=== PATIENT | male | born 1940 | race Caucasian/White ===

== ENCOUNTER 2017-08-10 14:56 | Inpatient (IN) ==
[2017-08-10] MEDS ORDERED: SODIUM CHLORIDE 0.9% 2,600 ML IV ONE (15:28)
[2017-08-10] MEDS ORDERED: LEVOFLOXACIN INJ 500 MG in PREMIX 1 EACH IV SCH (15:30)
[2017-08-10] MEDS ORDERED: LEVOFLOXACIN INJ 100 ML IV ONE (16:47)
[2017-08-10 17:03] LABS: Basophils # 0.1 10*3/uL (0.0-0.2); Basophils % 0.3 % (0.0-0.8); Eosinophils # 0.1 10*3/uL (0.0-0.87); Eosinophils % 0.3 % (0.00-10.9); Hematocrit 32.9 VOL% (42.0-52.0); Immature Granulocytes % 0.7 %; Immature Granulocytes Absolute 0.11 #; Lymphocytes # 2.3 10*3/uL (1.4-4.0); Lymphocytes % 15.4 % (21.2-54.2); Mean Corpuscular HGB Conc 36.5 GM/DL (32-36); Mean Corpuscular Hemoglobin 32 PG (27-34); Mean Platelet Volume 11.5 FL (9.6-12.0); Monocytes # 1.3 10*3/uL (0.11-0.8); Monocytes % 8.8 % (1.7-12.7); NRBC # 0.02 10*3/uL; Neutrophils # 11.2 10*3/uL (1.4-7.4); Neutrophils % 74.5 % (38.7-73.9); Platelet Count 166 T/CUMM (130-400); Red Blood Count 3.78 MC/CUMM (3.8-5.5)
[2017-08-10 17:21] LABS: Lactic Acid 2.4 MMOL/L (0.4-2.0)
[2017-08-10 17:28] LABS: Albumin 3.5 G/DL (3.4-5.0); Bilirubin,Total 0.6 MG/DL (0.2-1.0); Calcium 8.3 MG/DL (8.5-10.1); Osmolality,Calculated 263.7 MOS/KG (273-304); Potassium 4.7 MMOL/L (3.5-5.1); Total Protein 6.1 G/DL (6.4-8.3)
[2017-08-10 17:29] LABS: INR 1.1; PT Patient Result 11.3 SECS; Partial Thromboplastin Time 25.7 SECS (0-40)
[2017-08-10 17:42] LABS: Apearance,Urine Slightly Hazy (Clear); Bilirubin,Urine Negative (Negative); Blood, Urine Negative (Negative); Glucose,Urine (UA) Negative (Negative); Hyaline Casts,Urine 1 /LPF (0-3); Ketones,Urine Negative (Negative); Nitrite,Urine Negative (Negative); Protein,Urine 30 MG/DL; RBC,Urine 9 /HPF (0-4); Urine Color Yellow (Yellow); Urine Specific Gravity 1.011 (1.001-1.035); Urine Urobilinogen < 2.0 EU/DL (0.2-1.0); WBC,Urine 3 /HPF (0-6)
[2017-08-10] MEDS ORDERED: ONDANSETRON 4 MG TABLET PO PRN (18:29)
[2017-08-10] MEDS ORDERED: LEVOFLOXACIN INJ 750 MG in PREMIX 1 EACH IV SCH (18:30)
[2017-08-10] MEDS ORDERED: DEXTROSE 50% 25 GM/50 ML VIAL IV PRN ×2 (18:31)
[2017-08-10] MEDS ORDERED: GLUCAGON 1 MG VIAL IM PRN ×2 (18:31)
[2017-08-10] MEDS ORDERED: ALBUTEROL 2.5 MG/3 ML NEB RESP TX PRN (18:39)
[2017-08-10] MEDS ORDERED: ACETAMINOPHEN 325 MG TABLET PO PRN (18:40)
[2017-08-10] MEDS ORDERED: ONDANSETRON 4 MG/2 ML VIAL IV PRN (18:40)
[2017-08-10] MEDS ORDERED: guaiFENesin/DM ER 600-30 MG TABLET PO PRN (18:40)
[2017-08-10] MEDS ORDERED: ENOXAPARIN 40 MG/0.4 ML SYRINGE SUBCUT SCH (19:00)
[2017-08-10 19:08] LABS: ABG Base Excess -1.7 MMOL/L (-2.5-2.5); ABG Oxygen Saturation 95.6 % (95-100); ABG PCO2 35.4 MM HG (35-48); ABG PH 7.409 (7.35-7.45); ABG PO2 73.8 MM HG (80-95); ABG TCO2 19.9 MMOL/L (23-27)
[2017-08-10] MEDS: methylPREDNISolone SOD SUC 40 MG/1 ML VIAL IV SCH (20:41)
[2017-08-10] MEDS: DOCUSATE SODIUM 100 MG CAPSULE PO SCH (20:42)
[2017-08-10] MEDS: ASPIRIN EC 81 MG TABLET PO SCH (20:42)
[2017-08-10] MEDS ORDERED: VANCOMYCIN INJ 1,500 MG in SODIUM CHLORIDE 0.9% 500 ML IV SCH (21:00)
[2017-08-10] MEDS: INSULIN REGULAR 100 UNIT/ML SUBCUT SCH (21:06)
[2017-08-10] MEDS: ALBUTEROL/IPRATROPIUM 3 ML NEB RESP TX SCH (21:11)
[2017-08-10] MEDS: ZALEPLON 5 MG CAPSULE PO PRN ×2 (22:32→23:25)
[2017-08-10] MEDS: AZTREONAM 1,000 MG in SODIUM CHLORIDE 0.9% 50 ML IV SCH (22:33)
[2017-08-11] MEDS: ALBUTEROL/IPRATROPIUM 3 ML NEB RESP TX SCH ×4 (01:05→20:02)
[2017-08-11] MEDS: AZTREONAM 1,000 MG in SODIUM CHLORIDE 0.9% 50 ML IV SCH ×2 (04:24→16:14)
[2017-08-11] MEDS: methylPREDNISolone SOD SUC 40 MG/1 ML VIAL IV SCH ×3 (04:25→11:07)
[2017-08-11 05:18] LABS: Basophils % 0.1 % (0.0-0.8); Hematocrit 33.9 VOL% (42.0-52.0); Hemoglobin 11.9 GM/DL (14.0-18.0); Immature Granulocytes Absolute 0.13 #; Lymphocytes # 1.1 10*3/uL (1.4-4.0); Lymphocytes % 9.1 % (21.2-54.2); Mean Corpuscular HGB Conc 35.1 GM/DL (32-36); Mean Corpuscular Hemoglobin 31 PG (27-34); Mean Corpuscular Volume 88.7 FL (87-102); Mean Platelet Volume 11.3 FL (9.6-12.0); Monocytes # 0.2 10*3/uL (0.11-0.8); Monocytes % 1.9 % (1.7-12.7); Neutrophils # 10.9 10*3/uL (1.4-7.4); Neutrophils % 87.9 % (38.7-73.9); Platelet Count 159 T/CUMM (130-400); Red Blood Count 3.82 MC/CUMM (3.8-5.5); Red Cell Distribution Width 13.2 % (9.3-17.3); White Blood Count 12.4 T/CUMM (4-12)
[2017-08-11 05:53] LABS: Calcium 8.5 MG/DL (8.5-10.1); Osmolality,Calculated 276.2 MOS/KG (273-304); Potassium 4.7 MMOL/L (3.5-5.1)
[2017-08-11] MEDS ORDERED: NON-FORMULARY MEDICATION (Omeprazole [Omeprazole] 20 MG) PO SCH (09:00)
[2017-08-11] MEDS: ASPIRIN EC 81 MG TABLET PO SCH ×2 (09:27→21:11)
[2017-08-11] MEDS: DOCUSATE SODIUM 100 MG CAPSULE PO SCH ×2 (09:27→21:10)
[2017-08-11] MEDS: PANTOPRAZOLE 40 MG TABLET PO SCH (09:27)
[2017-08-11] MEDS: INSULIN NPH/REGULAR 70/30 100 UNIT/ML SUBCUT SCH ×2 (09:28→16:16)
[2017-08-11] MEDS: INSULIN REGULAR 100 UNIT/ML SUBCUT SCH ×4 (09:28→23:00)
[2017-08-11] MEDS: VANCOMYCIN INJ 1,500 MG in SODIUM CHLORIDE 0.9% 500 ML IV SCH ×2 (11:21→23:37)
[2017-08-11] MEDS: SIMVASTATIN 40 MG TABLET PO SCH (16:14)
[2017-08-11] MEDS: traZODone 50 MG TABLET PO SCH (16:14)
[2017-08-11] MEDS: LEVOFLOXACIN INJ 750 MG in PREMIX 1 EACH IV SCH (21:11)
[2017-08-12] MEDS: ALBUTEROL/IPRATROPIUM 3 ML NEB RESP TX SCH ×4 (01:04→19:48)
[2017-08-12] MEDS: AZTREONAM 1,000 MG in SODIUM CHLORIDE 0.9% 50 ML IV SCH ×4 (03:00→17:05)
[2017-08-12] MEDS: PANTOPRAZOLE 40 MG TABLET PO SCH (08:17)
[2017-08-12] MEDS: ASPIRIN EC 81 MG TABLET PO SCH ×2 (08:17→21:10)
[2017-08-12] MEDS: INSULIN REGULAR 100 UNIT/ML SUBCUT SCH ×4 (08:17→22:10)
[2017-08-12] MEDS: INSULIN NPH/REGULAR 70/30 100 UNIT/ML SUBCUT SCH ×2 (08:17→17:05)
[2017-08-12] MEDS: DOCUSATE SODIUM 100 MG CAPSULE PO SCH ×2 (08:17→21:10)
[2017-08-12 08:40] LABS: Basophils % 0.1 % (0.0-0.8); Hematocrit 33.7 VOL% (42.0-52.0); Hemoglobin 11.7 GM/DL (14.0-18.0); Immature Granulocytes % 0.8 %; Immature Granulocytes Absolute 0.13 #; Lymphocytes # 2.7 10*3/uL (1.4-4.0); Lymphocytes % 16.8 % (21.2-54.2); Mean Corpuscular HGB Conc 34.7 GM/DL (32-36); Mean Corpuscular Hemoglobin 31 PG (27-34); Mean Corpuscular Volume 90.1 FL (87-102); Mean Platelet Volume 11.4 FL (9.6-12.0); Monocytes % 6.2 % (1.7-12.7); Neutrophils # 12.1 10*3/uL (1.4-7.4); Neutrophils % 76.1 % (38.7-73.9); Platelet Count 176 T/CUMM (130-400); Red Blood Count 3.74 MC/CUMM (3.8-5.5); Red Cell Distribution Width 13.7 % (9.3-17.3); White Blood Count 15.9 T/CUMM (4-12)
[2017-08-12 09:16] LABS: Albumin 3.6 G/DL (3.4-5.0); Bilirubin,Total 0.4 MG/DL (0.2-1.0); Calcium 9.4 MG/DL (8.5-10.1); Magnesium 2.1 MG/DL (1.8-2.4); Osmolality,Calculated 275.1 MOS/KG (273-304); Phosphorous 1.9 MG/DL (2.5-4.9); Potassium 4.8 MMOL/L (3.5-5.1); Total Protein 6.9 G/DL (6.4-8.3)
[2017-08-12] MEDS: VANCOMYCIN INJ 1,500 MG in SODIUM CHLORIDE 0.9% 500 ML IV SCH ×2 (13:54→14:31)
[2017-08-12] MEDS: SIMVASTATIN 40 MG TABLET PO SCH (16:48)
[2017-08-12] MEDS: traZODone 50 MG TABLET PO SCH (16:48)
[2017-08-12] MEDS: LEVOFLOXACIN INJ 750 MG in PREMIX 1 EACH IV SCH (21:10)
[2017-08-13] MEDS: ALBUTEROL/IPRATROPIUM 3 ML NEB RESP TX SCH ×4 (00:07→20:06)
[2017-08-13] MEDS: AZTREONAM 1,000 MG in SODIUM CHLORIDE 0.9% 50 ML IV SCH ×2 (01:16→08:15)
[2017-08-13] MEDS: VANCOMYCIN INJ 1,500 MG in SODIUM CHLORIDE 0.9% 500 ML IV SCH (01:56)
[2017-08-13 05:29] LABS: Basophils % 0.2 % (0.0-0.8); Eosinophils # 0.1 10*3/uL (0.0-0.87); Eosinophils % 0.6 % (0.00-10.9); Hematocrit 33.3 VOL% (42.0-52.0); Hemoglobin 11.4 GM/DL (14.0-18.0); Immature Granulocytes % 0.5 %; Immature Granulocytes Absolute 0.05 #; Lymphocytes # 3.1 10*3/uL (1.4-4.0); Lymphocytes % 31.1 % (21.2-54.2); Mean Corpuscular HGB Conc 34.2 GM/DL (32-36); Mean Corpuscular Hemoglobin 30 PG (27-34); Mean Corpuscular Volume 88.6 FL (87-102); Mean Platelet Volume 11.4 FL (9.6-12.0); Monocytes # 0.8 10*3/uL (0.11-0.8); Monocytes % 7.8 % (1.7-12.7); Neutrophils % 59.8 % (38.7-73.9); Platelet Count 175 T/CUMM (130-400); Red Blood Count 3.76 MC/CUMM (3.8-5.5); Red Cell Distribution Width 13.7 % (9.3-17.3)
[2017-08-13 06:15] LABS: Albumin 3.4 G/DL (3.4-5.0); Bilirubin,Total 0.8 MG/DL (0.2-1.0); Calcium 8.7 MG/DL (8.5-10.1); Magnesium 2.1 MG/DL (1.8-2.4); Osmolality,Calculated 272.8 MOS/KG (273-304); Potassium 3.8 MMOL/L (3.5-5.1); Total Protein 6.3 G/DL (6.4-8.3)
[2017-08-13] MEDS: INSULIN REGULAR 100 UNIT/ML SUBCUT SCH ×4 (08:12→21:09)
[2017-08-13] MEDS: ASPIRIN EC 81 MG TABLET PO SCH ×2 (08:15→20:47)
[2017-08-13] MEDS: DOCUSATE SODIUM 100 MG CAPSULE PO SCH ×2 (08:16→20:47)
[2017-08-13] MEDS: INSULIN NPH/REGULAR 70/30 100 UNIT/ML SUBCUT SCH ×2 (08:16→16:48)
[2017-08-13] MEDS: PANTOPRAZOLE 40 MG TABLET PO SCH (08:16)
[2017-08-13] MEDS: LEVOFLOXACIN 750 MG TABLET PO SCH (11:50)
[2017-08-13] MEDS: SIMVASTATIN 40 MG TABLET PO SCH (16:48)
[2017-08-13] MEDS: traZODone 50 MG TABLET PO SCH (16:48)
[2017-08-14] MEDS: ALBUTEROL/IPRATROPIUM 3 ML NEB RESP TX SCH ×2 (01:42→07:10)
[2017-08-14] MEDS: INSULIN NPH/REGULAR 70/30 100 UNIT/ML SUBCUT SCH (09:26)
[2017-08-14] MEDS: ASPIRIN EC 81 MG TABLET PO SCH (09:27)
[2017-08-14] MEDS: DOCUSATE SODIUM 100 MG CAPSULE PO SCH (09:27)
[2017-08-14] MEDS: INSULIN REGULAR 100 UNIT/ML SUBCUT SCH ×2 (09:27→13:20)
[2017-08-14] MEDS: PANTOPRAZOLE 40 MG TABLET PO SCH (09:27)
[2017-08-14 10:09] VITALS: BP 163/97
[2017-08-14] MEDS: LEVOFLOXACIN 750 MG TABLET PO SCH (11:35)
== END 2017-08-14 12:45 | DRG 871 ==
LOC: N.ED 14:56 → N.EDINP 18:13 → SUATTDRO 18:13 → N.ICU 19:03 → N.5E 08-11 12:06
PROVIDERS: ADMIT Hospitalist; ATTEND Internal Medicine

== ENCOUNTER 2017-08-26 19:29 | Inpatient (IN) ==
[2017-08-26] MEDS ORDERED: LEVOFLOXACIN INJ 750 MG in PREMIX 1 EACH IV STA (20:01)
[2017-08-26] MEDS ORDERED: METOPROLOL TARTRATE 5 MG/5 ML VIAL IV STA (20:01)
[2017-08-26] MEDS ORDERED: ONDANSETRON 4 MG/2 ML VIAL IV STA (20:01)
[2017-08-26] MEDS ORDERED: METOPROLOL TARTRATE 5 MG/5 ML VIAL IV ONE (20:05)
[2017-08-26] MEDS ORDERED: LEVOFLOXACIN INJ 150 ML IV ONE (20:05)
[2017-08-26] MEDS ORDERED: ONDANSETRON 4 MG/2 ML VIAL ONE (20:05)
[2017-08-26 20:15] LABS: Basophils # 0.1 10*3/uL (0.0-0.2); Basophils % 1.1 % (0.0-0.8); Eosinophils # 0.2 10*3/uL (0.0-0.87); Eosinophils % 2.7 % (0.00-10.9); Hematocrit 34.8 VOL% (42.0-52.0); Hemoglobin 12.3 GM/DL (14.0-18.0); Immature Granulocytes % 0.5 %; Immature Granulocytes Absolute 0.04 #; Lymphocytes # 2.2 10*3/uL (1.4-4.0); Lymphocytes % 28.7 % (21.2-54.2); Mean Corpuscular HGB Conc 35.3 GM/DL (32-36); Mean Corpuscular Hemoglobin 31 PG (27-34); Mean Corpuscular Volume 87.2 FL (87-102); Mean Platelet Volume 11.5 FL (9.6-12.0); Monocytes % 12.6 % (1.7-12.7); Neutrophils # 4.1 10*3/uL (1.4-7.4); Neutrophils % 54.4 % (38.7-73.9); Platelet Count 223 T/CUMM (130-400); Red Blood Count 3.99 MC/CUMM (3.8-5.5); Red Cell Distribution Width 12.5 % (9.3-17.3); White Blood Count 7.5 T/CUMM (4-12)
[2017-08-26 20:25] LABS: PT Patient Result 10.7 SECS
[2017-08-26] MEDS ORDERED: SODIUM CHLORIDE 0.9% 500 ML IV STA (20:32)
[2017-08-26 20:44] LABS: Apearance,Urine Slightly Hazy (Clear); Bacteria,Urine Occasional /HPF (Few); Bilirubin,Urine Negative (Negative); Blood, Urine Negative (Negative); Glucose,Urine (UA) Negative (Negative); Hyaline Casts,Urine 1 /LPF (0-3); Ketones,Urine Negative (Negative); Mucus,Urine Occasional /LPF (Occasional); Nitrite,Urine Negative (Negative); Protein,Urine 30 MG/DL; RBC,Urine 1 /HPF (0-4); Squamous Epithelial Cell,Urine Occasional /HPF (0-10); Urine Color Yellow (Yellow); Urine Specific Gravity 1.012 (1.001-1.035); Urine Urobilinogen < 2.0 EU/DL (0.2-1.0); WBC,Urine 1 /HPF (0-6)
[2017-08-26 20:46] LABS: Band Neutrophils 2 % (0-10); Eosinophils 2 % (0-10); Lymphocytes 34 % (20-55); Segmented Neutrophils 55 % (50-85)
[2017-08-26 20:47] LABS: Total Cells Counted 100
[2017-08-26 20:48] LABS: Platelet Estimate Normal
[2017-08-26 20:56] LABS: Alanine Aminotransferase 29 U/L (16-61); Albumin 3.8 G/DL (3.4-5.0); Alkaline Phosphatase 63 U/L (45-117); Aspartate Amino Transferase 31 U/L (0-37); Blood Urea Nitrogen 9 MG/DL (7-18); Calcium 8.5 MG/DL (8.5-10.1); Glucose 76 MG/DL (74-106); Osmolality,Calculated 252.2 MOS/KG (273-304); Potassium 4.6 MMOL/L (3.5-5.1); Sodium 127 MMOL/L (136-145); Total Protein 7.2 G/DL (6.4-8.3); Troponin I Only < 0.015 NG/ML (0.00-0.045)
[2017-08-26] MEDS ORDERED: DEXTROSE 50% 25 GM/50 ML VIAL IV PRN (22:28)
[2017-08-26] MEDS ORDERED: GLUCAGON 1 MG VIAL IM PRN (22:28)
[2017-08-26] MEDS ORDERED: ONDANSETRON 4 MG/2 ML VIAL IV PRN ×2 (23:55)
[2017-08-27] MEDS ORDERED: LINEZOLID INJ 600 MG in PREMIX 1 EACH IV SCH
[2017-08-27] MEDS: SODIUM CHLORIDE 0.9% 1,000 ML IV SCH ×5 (00:14→18:23)
[2017-08-27] MEDS: AZTREONAM 1,000 MG in SYRINGE 1 EACH IV SCH ×3 (00:29→15:38)
[2017-08-27] MEDS: SODIUM CHLORIDE 1 GM TABLET PO SCH ×4 (00:45→21:10)
[2017-08-27] MEDS: PROMETHAZINE 25 MG/1 ML VIAL IM PRN ×3 (02:10→16:00)
[2017-08-27 02:52] LABS: Basophils # 0.1 10*3/uL (0.0-0.2); Basophils % 0.8 % (0.0-0.8); Eosinophils # 0.1 10*3/uL (0.0-0.87); Eosinophils % 1.6 % (0.00-10.9); Hematocrit 31.8 VOL% (42.0-52.0); Hemoglobin 11.2 GM/DL (14.0-18.0); Immature Granulocytes % 0.5 %; Immature Granulocytes Absolute 0.04 #; Lymphocytes # 2.3 10*3/uL (1.4-4.0); Lymphocytes % 30.1 % (21.2-54.2); Mean Corpuscular HGB Conc 35.2 GM/DL (32-36); Mean Corpuscular Hemoglobin 31 PG (27-34); Mean Corpuscular Volume 86.6 FL (87-102); Mean Platelet Volume 11.8 FL (9.6-12.0); Monocytes # 1.2 10*3/uL (0.11-0.8); Monocytes % 15.7 % (1.7-12.7); NRBC # 0.05 10*3/uL; Neutrophils # 3.9 10*3/uL (1.4-7.4); Neutrophils % 51.3 % (38.7-73.9); Platelet Count 194 T/CUMM (130-400); Red Blood Count 3.67 MC/CUMM (3.8-5.5); Red Cell Distribution Width 12.6 % (9.3-17.3); White Blood Count 7.5 T/CUMM (4-12)
[2017-08-27 03:04] LABS: Calcium 7.7 MG/DL (8.5-10.1); Magnesium 1.8 MG/DL (1.8-2.4); Osmolality,Calculated 255.2 MOS/KG (273-304); Potassium 4.6 MMOL/L (3.5-5.1)
[2017-08-27 04:29] LABS: Band Neutrophils 1 % (0-10); Eosinophils 1 % (0-10); Lymphocytes 29 % (20-55); Nucleated Red Blood Cells 2 (0-5); Segmented Neutrophils 53 % (50-85); Total Cells Counted 100
[2017-08-27 04:30] LABS: Anisocytosis Slight; Macrocytosis Slight; Platelet Estimate Normal; Polychromasia 2+
[2017-08-27] MEDS ORDERED: ACETAMINOPHEN 500 MG TABLET PO PRN (05:17)
[2017-08-27] MEDS ORDERED: SODIUM CHLORIDE 0.9% 1,000 ML IV ONE (07:34)
[2017-08-27 08:02] LABS: Allen Test Positive; Pt O2 Delivery Device Simple Mask
[2017-08-27 08:03] LABS: ABG HCO3 21.9 MMOL/L (20-26); ABG Oxygen Saturation 98.7 % (95-100); ABG PCO2 30.8 MM HG (35-48); ABG PH 7.429 (7.35-7.45); ABG TCO2 18.3 MMOL/L (23-27)
[2017-08-27 09:26] LABS: Pt O2 Delivery Device Venturi Mask
[2017-08-27 09:27] LABS: ABG Base Excess -4.1 MMOL/L (-2.5-2.5); ABG Oxygen Saturation 96.8 % (95-100); ABG PCO2 31.8 MM HG (35-48); ABG PH 7.402 (7.35-7.45); ABG PO2 83.5 MM HG (80-95); ABG TCO2 17.9 MMOL/L (23-27)
[2017-08-27] MEDS: HYDROCORTISONE 100 MG VIAL IV SCH ×2 (09:56→21:10)
[2017-08-27] MEDS: ASPIRIN EC 81 MG TABLET PO SCH ×2 (09:59→21:10)
[2017-08-27] MEDS: INSULIN NPH/REGULAR 70/30 100 UNIT/ML SUBCUT SCH ×2 (09:59→21:11)
[2017-08-27] MEDS: DOCUSATE SODIUM 100 MG CAPSULE PO SCH ×2 (09:59→21:10)
[2017-08-27] MEDS: IRBESARTAN 150 MG TABLET PO SCH (10:17)
[2017-08-27] MEDS: CARVEDILOL 6.25 MG TABLET PO SCH ×2 (10:17→21:11)
[2017-08-27] MEDS ORDERED: FUROSEMIDE 40 MG/4 ML VIAL IV ONE (13:06)
[2017-08-27] MEDS: SIMVASTATIN 40 MG TABLET PO SCH (16:01)
[2017-08-27] MEDS: INSULIN REGULAR 100 UNIT/ML SUBCUT SCH (21:11)
[2017-08-28] MEDS: AZTREONAM 1,000 MG in SYRINGE 1 EACH IV SCH ×3 (00:10→15:55)
[2017-08-28] MEDS: SODIUM CHLORIDE 0.9% 1,000 ML IV SCH ×5 (00:12→23:20)
[2017-08-28] MEDS: LEVOFLOXACIN INJ 500 MG in PREMIX 1 EACH IV SCH (06:45)
[2017-08-28] MEDS: INSULIN REGULAR 100 UNIT/ML SUBCUT SCH ×4 (07:58→20:57)
[2017-08-28 09:31] LABS: Calcium 7.8 MG/DL (8.5-10.1); Magnesium 2.3 MG/DL (1.8-2.4); Osmolality,Calculated 276.5 MOS/KG (273-304); Potassium 4.5 MMOL/L (3.5-5.1)
[2017-08-28] MEDS: HYDROCORTISONE 100 MG VIAL IV SCH ×2 (09:44→20:55)
[2017-08-28] MEDS: INSULIN NPH/REGULAR 70/30 100 UNIT/ML SUBCUT SCH ×2 (09:50→21:03)
[2017-08-28] MEDS: IRBESARTAN 150 MG TABLET PO SCH (09:51)
[2017-08-28] MEDS: SODIUM CHLORIDE 1 GM TABLET PO SCH ×3 (09:51→20:55)
[2017-08-28] MEDS: CARVEDILOL 6.25 MG TABLET PO SCH ×2 (09:52→20:56)
[2017-08-28] MEDS: ASPIRIN EC 81 MG TABLET PO SCH ×2 (09:52→20:55)
[2017-08-28] MEDS: DOCUSATE SODIUM 100 MG CAPSULE PO SCH ×2 (09:52→20:55)
[2017-08-28] MEDS ORDERED: VANCOMYCIN INJ 1,000 MG in SODIUM CHLORIDE 0.9% 250 ML IV SCH (11:00)
[2017-08-28] MEDS: VANCOMYCIN INJ 1,250 MG in SODIUM CHLORIDE 0.9% 250 ML IV SCH ×2 (11:54→23:20)
[2017-08-28] MEDS: SIMVASTATIN 40 MG TABLET PO SCH (16:01)
[2017-08-29] MEDS: AZTREONAM 1,000 MG in SYRINGE 1 EACH IV SCH ×2 (01:14→11:41)
[2017-08-29] MEDS: LEVOFLOXACIN INJ 500 MG in PREMIX 1 EACH IV SCH (06:02)
[2017-08-29] MEDS: SODIUM CHLORIDE 0.9% 1,000 ML IV SCH ×3 (06:11→23:12)
[2017-08-29] MEDS: INSULIN NPH/REGULAR 70/30 100 UNIT/ML SUBCUT SCH ×2 (07:22→17:22)
[2017-08-29] MEDS: INSULIN REGULAR 100 UNIT/ML SUBCUT SCH ×4 (07:22→22:27)
[2017-08-29] MEDS: DOCUSATE SODIUM 100 MG CAPSULE PO SCH ×2 (10:00→20:29)
[2017-08-29] MEDS: CARVEDILOL 6.25 MG TABLET PO SCH ×3 (10:26→20:34)
[2017-08-29] MEDS: SODIUM CHLORIDE 1 GM TABLET PO SCH ×3 (10:26→20:29)
[2017-08-29] MEDS: IRBESARTAN 150 MG TABLET PO SCH (10:27)
[2017-08-29] MEDS: ASPIRIN EC 81 MG TABLET PO SCH ×2 (10:28→20:29)
[2017-08-29] MEDS: HYDROCORTISONE 100 MG VIAL IV SCH ×2 (10:29→20:28)
[2017-08-29] MEDS ORDERED: AZTREONAM 2,000 MG in SODIUM CHLORIDE 0.9% 50 ML IV SCH (17:00)
[2017-08-29] MEDS: SIMVASTATIN 40 MG TABLET PO SCH (17:23)
[2017-08-29] MEDS ORDERED: NON-FORMULARY MEDICATION (Exenatide Microspheres [Bydureon Pen] 2 MG) SUBCUT SCH (22:25)
[2017-08-29] MEDS: VANCOMYCIN INJ 1,250 MG in SODIUM CHLORIDE 0.45% 250 ML IV SCH (23:12)
[2017-08-30] MEDS ORDERED: LEVOFLOXACIN INJ 750 MG in PREMIX 1 EACH IV SCH (06:00)
[2017-08-30] MEDS: INSULIN REGULAR 100 UNIT/ML SUBCUT SCH ×4 (10:23→22:11)
[2017-08-30] MEDS: IRBESARTAN 150 MG TABLET PO SCH (10:24)
[2017-08-30] MEDS: ASPIRIN EC 81 MG TABLET PO SCH ×2 (10:25→21:00)
[2017-08-30] MEDS: CARVEDILOL 6.25 MG TABLET PO SCH ×2 (10:25→22:11)
[2017-08-30] MEDS: HYDROCORTISONE 100 MG VIAL IV SCH ×2 (10:25→20:59)
[2017-08-30] MEDS: INSULIN NPH/REGULAR 70/30 100 UNIT/ML SUBCUT SCH ×2 (10:26→18:01)
[2017-08-30] MEDS: DOCUSATE SODIUM 100 MG CAPSULE PO SCH (11:16)
[2017-08-30] MEDS: SODIUM CHLORIDE 0.9% 1,000 ML IV SCH ×2 (11:17→22:10)
[2017-08-30] MEDS ORDERED: DEXTROSE 50% 25 GM/50 ML VIAL IV PRN (12:06)
[2017-08-30] MEDS ORDERED: GLUCAGON 1 MG VIAL IM PRN (12:06)
[2017-08-30] MEDS: VANCOMYCIN INJ 1,250 MG in SODIUM CHLORIDE 0.45% 250 ML IV SCH ×2 (13:32→22:52)
[2017-08-30] MEDS: cefTRIAXone 1,000 MG in SYRINGE 1 EACH IV SCH (15:59)
[2017-08-30] MEDS: SIMVASTATIN 40 MG TABLET PO SCH (18:00)
[2017-08-31] MEDS: SODIUM CHLORIDE 0.9% 1,000 ML IV SCH ×2 (05:16→14:28)
[2017-08-31] MEDS: INSULIN REGULAR 100 UNIT/ML SUBCUT SCH ×4 (09:21→22:28)
[2017-08-31] MEDS: ASPIRIN EC 81 MG TABLET PO SCH ×2 (09:22→22:23)
[2017-08-31] MEDS: IRBESARTAN 150 MG TABLET PO SCH (09:23)
[2017-08-31] MEDS: CARVEDILOL 6.25 MG TABLET PO SCH ×2 (09:23→22:23)
[2017-08-31] MEDS: INSULIN NPH/REGULAR 70/30 100 UNIT/ML SUBCUT SCH ×2 (09:23→16:24)
[2017-08-31] MEDS: HYDROCORTISONE 100 MG VIAL IV SCH ×2 (09:24→22:24)
[2017-08-31] MEDS: cefTRIAXone 1,000 MG in SYRINGE 1 EACH IV SCH (09:34)
[2017-08-31] MEDS: SIMVASTATIN 40 MG TABLET PO SCH (16:24)
[2017-09-01] MEDS: INSULIN REGULAR 100 UNIT/ML SUBCUT SCH ×4 (08:03→22:36)
[2017-09-01] MEDS: INSULIN NPH/REGULAR 70/30 100 UNIT/ML SUBCUT SCH ×2 (09:10→16:50)
[2017-09-01] MEDS: IRBESARTAN 150 MG TABLET PO SCH (09:12)
[2017-09-01] MEDS: cefTRIAXone 1,000 MG in SYRINGE 1 EACH IV SCH (09:13)
[2017-09-01] MEDS: CARVEDILOL 6.25 MG TABLET PO SCH ×2 (09:13→22:29)
[2017-09-01] MEDS: HYDROCORTISONE 100 MG VIAL IV SCH ×2 (09:13→22:35)
[2017-09-01] MEDS: ASPIRIN EC 81 MG TABLET PO SCH ×2 (09:13→22:29)
[2017-09-01] MEDS: SODIUM CHLORIDE 0.9% 1,000 ML IV SCH (14:26)
[2017-09-01] MEDS: SIMVASTATIN 40 MG TABLET PO SCH (16:50)
[2017-09-02 04:42] LABS: Basophils # 0.1 10*3/uL (0.0-0.2); Basophils % 0.8 % (0.0-0.8); Eosinophils # 0.1 10*3/uL (0.0-0.87); Eosinophils % 0.7 % (0.00-10.9); Hematocrit 34.3 VOL% (42.0-52.0); Hemoglobin 11.9 GM/DL (14.0-18.0); Immature Granulocytes % 0.4 %; Immature Granulocytes Absolute 0.03 #; Lymphocytes # 1.4 10*3/uL (1.4-4.0); Lymphocytes % 18.7 % (21.2-54.2); Mean Corpuscular HGB Conc 34.7 GM/DL (32-36); Mean Corpuscular Hemoglobin 30 PG (27-34); Mean Corpuscular Volume 87.5 FL (87-102); Mean Platelet Volume 11.7 FL (9.6-12.0); Monocytes # 0.8 10*3/uL (0.11-0.8); Monocytes % 11.1 % (1.7-12.7); Neutrophils # 5.2 10*3/uL (1.4-7.4); Neutrophils % 68.3 % (38.7-73.9); Platelet Count 277 T/CUMM (130-400); Red Blood Count 3.92 MC/CUMM (3.8-5.5); Red Cell Distribution Width 13.2 % (9.3-17.3); White Blood Count 7.6 T/CUMM (4-12)
[2017-09-02 05:19] LABS: Calcium 8.8 MG/DL (8.5-10.1); Osmolality,Calculated 271.8 MOS/KG (273-304); Potassium 3.4 MMOL/L (3.5-5.1)
[2017-09-02 07:58] VITALS: BP 150/89
[2017-09-02] MEDS: INSULIN REGULAR 100 UNIT/ML SUBCUT SCH (08:37)
[2017-09-02] MEDS: SODIUM CHLORIDE 0.9% 1,000 ML IV SCH ×2 (08:54→08:55)
[2017-09-02] MEDS: CARVEDILOL 6.25 MG TABLET PO SCH (09:07)
[2017-09-02] MEDS: ASPIRIN EC 81 MG TABLET PO SCH (09:07)
[2017-09-02] MEDS: IRBESARTAN 150 MG TABLET PO SCH (09:07)
[2017-09-02] MEDS: INSULIN NPH/REGULAR 70/30 100 UNIT/ML SUBCUT SCH (09:07)
[2017-09-02] MEDS: cefTRIAXone 1,000 MG in SYRINGE 1 EACH IV SCH (09:07)
== END 2017-09-02 11:05 | disposition home health service (06) | DRG 871 ==
LOC: EDUNIT# → EDBD → N.ED 19:29 → N.EDINP 22:10 → SUATTDRO 22:10 → N.5E 22:34 → N.ICU 08-27 08:08 → N.2E 08-28 14:12
PROVIDERS: ADMIT Hospitalist; ATTEND Internal Medicine

== ENCOUNTER 2017-10-05 15:21 | Inpatient (IN) ==
[2017-10-05] MEDS ORDERED: SODIUM CHLORIDE 0.9% 500 ML IV STA ×2 (17:20→19:45)
[2017-10-05 18:44] LABS: Basophils # 0.1 10*3/uL (0.0-0.2); Basophils % 1.1 % (0.0-0.8); Eosinophils # 0.1 10*3/uL (0.0-0.87); Hematocrit 31.8 VOL% (42.0-52.0); Hemoglobin 11.4 GM/DL (14.0-18.0); Lymphocytes # 2.3 10*3/uL (1.4-4.0); Lymphocytes % 49.3 % (21.2-54.2); Mean Corpuscular HGB Conc 35.8 GM/DL (32-36); Mean Corpuscular Hemoglobin 30 PG (27-34); Mean Corpuscular Volume 83.9 FL (87-102); Mean Platelet Volume 10.7 FL (9.6-12.0); Monocytes # 0.7 10*3/uL (0.11-0.8); Monocytes % 14.8 % (1.7-12.7); Neutrophils # 1.5 10*3/uL (1.4-7.4); Neutrophils % 31.8 % (38.7-73.9); Platelet Count 173 T/CUMM (130-400); Red Blood Count 3.79 MC/CUMM (3.8-5.5); Red Cell Distribution Width 13.3 % (9.3-17.3); White Blood Count 4.7 T/CUMM (4-12)
[2017-10-05 18:55] LABS: INR 1.1; PT Patient Result 11.2 SECS
[2017-10-05 18:57] LABS: Apearance,Urine Slightly Hazy (Clear); Bilirubin,Urine Negative (Negative); Blood, Urine Negative (Negative); Glucose,Urine (UA) Negative (Negative); Hyaline Casts,Urine 16 /LPF (0-3); Ketones,Urine 5 mg/dL (Negative); Mucus,Urine Occasional /LPF (Occasional); Nitrite,Urine Negative (Negative); Protein,Urine Negative; RBC,Urine 2 /HPF (0-4); Urine Specific Gravity 1.015 (1.001-1.035); WBC,Urine 1 /HPF (0-6)
[2017-10-05 18:59] LABS: Urine Color Yellow (Yellow)
[2017-10-05 19:07] LABS: Lactic Acid 2.3 MMOL/L (0.4-2.0)
[2017-10-05 19:08] LABS: Alanine Aminotransferase 33 U/L (16-61); Albumin 3.1 G/DL (3.4-5.0); Alkaline Phosphatase 61 U/L (45-117); Aspartate Amino Transferase 27 U/L (0-37); Blood Urea Nitrogen 8 MG/DL (7-18); Calcium 7.9 MG/DL (8.5-10.1); Glucose 126 MG/DL (74-106); Magnesium 1.8 MG/DL (1.8-2.4); Osmolality,Calculated 244.9 MOS/KG (273-304); Potassium 3.6 MMOL/L (3.5-5.1); Sodium 122 MMOL/L (136-145); Total Protein 6.1 G/DL (6.4-8.3); Troponin I Only < 0.015 NG/ML (0.00-0.045)
[2017-10-05 19:51] LABS: Eosinophils 1 % (0-10); Lymphocytes 68 % (20-55); Platelet Estimate Normal; Segmented Neutrophils 23 % (50-85); Total Cells Counted 100
[2017-10-05] MEDS: VANCOMYCIN INJ 1,250 MG in SODIUM CHLORIDE 0.9% 250 ML IV SCH (20:05)
[2017-10-05] MEDS ORDERED: ONDANSETRON 4 MG TABLET PO PRN (20:22)
[2017-10-05] MEDS ORDERED: GLUCAGON 1 MG VIAL IM PRN (20:24)
[2017-10-05] MEDS ORDERED: DEXTROSE 50% 25 GM/50 ML VIAL IV PRN (20:24)
[2017-10-05 20:36] LABS: Apearance,Urine Slightly Hazy (Clear); Bacteria,Urine Occasional /HPF (Few); Bilirubin,Urine Negative (Negative); Blood, Urine Negative (Negative); Glucose,Urine (UA) Negative (Negative); Hyaline Casts,Urine 28 /LPF (0-3); Ketones,Urine 5 mg/dL (Negative); Mucus,Urine Occasional /LPF (Occasional); Nitrite,Urine Negative (Negative); Protein,Urine 30 MG/DL; RBC,Urine 2 /HPF (0-4); Squamous Epithelial Cell,Urine Occasional /HPF (0-10); Urine Color Amber (Yellow); Urine Specific Gravity 1.015 (1.001-1.035); WBC,Urine 3 /HPF (0-6)
[2017-10-05] MEDS: ASPIRIN EC 81 MG TABLET PO SCH (23:00)
[2017-10-05] MEDS: OMEGA 3 ACID ETHYL ESTERS 1 GM CAPSULE PO SCH (23:00)
[2017-10-05] MEDS: CARVEDILOL 6.25 MG TABLET PO SCH (23:00)
[2017-10-06] MEDS: INSULIN LISPRO 100 UNIT/ML SUBCUT SCH ×5 (00:15→20:59)
[2017-10-06 05:03] LABS: Basophils # 0.1 10*3/uL (0.0-0.2); Basophils % 1.3 % (0.0-0.8); Eosinophils # 0.2 10*3/uL (0.0-0.87); Eosinophils % 2.8 % (0.00-10.9); Hematocrit 30.4 VOL% (42.0-52.0); Hemoglobin 11.2 GM/DL (14.0-18.0); Immature Granulocytes % 0.2 %; Immature Granulocytes Absolute 0.01 #; Lymphocytes # 2.5 10*3/uL (1.4-4.0); Lymphocytes % 46.4 % (21.2-54.2); Mean Corpuscular HGB Conc 36.8 GM/DL (32-36); Mean Corpuscular Hemoglobin 30 PG (27-34); Mean Corpuscular Volume 82.6 FL (87-102); Mean Platelet Volume 10.8 FL (9.6-12.0); Monocytes # 0.6 10*3/uL (0.11-0.8); Neutrophils % 37.3 % (38.7-73.9); Platelet Count 181 T/CUMM (130-400); Red Blood Count 3.68 MC/CUMM (3.8-5.5); Red Cell Distribution Width 13.2 % (9.3-17.3); White Blood Count 5.4 T/CUMM (4-12)
[2017-10-06 05:29] LABS: Lactic Acid 2.2 MMOL/L (0.4-2.0)
[2017-10-06 05:42] LABS: Alanine Aminotransferase 28 U/L (16-61); Alkaline Phosphatase 61 U/L (45-117); Aspartate Amino Transferase 27 U/L (0-37); Blood Urea Nitrogen 5 MG/DL (7-18); Calcium 8.2 MG/DL (8.5-10.1); Glucose 120 MG/DL (74-106); Osmolality,Calculated 246.6 MOS/KG (273-304); Potassium 4.1 MMOL/L (3.5-5.1); Sodium 124 MMOL/L (136-145); Total Protein 5.5 G/DL (6.4-8.3)
[2017-10-06 05:46] LABS: Eosinophils 4 % (0-10); Lymphocytes 46 % (20-55); Segmented Neutrophils 41 % (50-85); Total Cells Counted 100
[2017-10-06 05:47] LABS: Hypochromasia Slight; Microcytosis Slight; Platelet Estimate Adequate
[2017-10-06] MEDS ORDERED: SODIUM CHLORIDE 0.9% 1,000 ML IV SCH (08:30)
[2017-10-06] MEDS ORDERED: IRBESARTAN 150 MG TABLET PO SCH (09:00)
[2017-10-06] MEDS: VANCOMYCIN INJ 1,250 MG in SODIUM CHLORIDE 0.9% 250 ML IV SCH (10:09)
[2017-10-06] MEDS: INSULIN NPH/REGULAR 70/30 100 UNIT/ML SUBCUT SCH ×2 (10:09→18:02)
[2017-10-06] MEDS: ASPIRIN EC 81 MG TABLET PO SCH ×2 (10:10→20:33)
[2017-10-06] MEDS: PANTOPRAZOLE 40 MG TABLET PO SCH (10:11)
[2017-10-06] MEDS: CARVEDILOL 6.25 MG TABLET PO SCH ×2 (10:11→20:33)
[2017-10-06] MEDS: OMEGA 3 ACID ETHYL ESTERS 1 GM CAPSULE PO SCH ×2 (10:11→20:33)
[2017-10-06] MEDS: traZODone 50 MG TABLET PO SCH (18:17)
[2017-10-06] MEDS: SIMVASTATIN 40 MG TABLET PO SCH (18:17)
[2017-10-06] MEDS ORDERED: ZIPRASIDONE 20 MG/1 ML VIAL IM ONE (20:20)
[2017-10-06] MEDS: SODIUM CHLORIDE 1 GM TABLET PO SCH (20:33)
[2017-10-07 05:04] LABS: Basophils # 0.1 10*3/uL (0.0-0.2); Basophils % 1.7 % (0.0-0.8); Eosinophils # 0.3 10*3/uL (0.0-0.87); Eosinophils % 6.2 % (0.00-10.9); Hematocrit 31.5 VOL% (42.0-52.0); Hemoglobin 11.3 GM/DL (14.0-18.0); Immature Granulocytes % 0.2 %; Immature Granulocytes Absolute 0.01 #; Lymphocytes # 2.3 10*3/uL (1.4-4.0); Lymphocytes % 56.3 % (21.2-54.2); Mean Corpuscular HGB Conc 35.9 GM/DL (32-36); Mean Corpuscular Hemoglobin 30 PG (27-34); Mean Corpuscular Volume 84.5 FL (87-102); Mean Platelet Volume 10.8 FL (9.6-12.0); Monocytes # 0.5 10*3/uL (0.11-0.8); Monocytes % 13.3 % (1.7-12.7); Neutrophils # 0.9 10*3/uL (1.4-7.4); Neutrophils % 22.3 % (38.7-73.9); Platelet Count 166 T/CUMM (130-400); Red Blood Count 3.73 MC/CUMM (3.8-5.5); Red Cell Distribution Width 13.3 % (9.3-17.3); White Blood Count 4.1 T/CUMM (4-12)
[2017-10-07 05:28] LABS: Calcium 8.3 MG/DL (8.5-10.1); Magnesium 1.8 MG/DL (1.8-2.4); Osmolality,Calculated 253.2 MOS/KG (273-304)
[2017-10-07 08:52] LABS: Eosinophils 2 % (0-10); Lymphocytes 62 % (20-55); Segmented Neutrophils 23 % (50-85); Total Cells Counted 100
[2017-10-07 08:53] LABS: Hypochromasia 1+; Microcytosis 1+; Ovalocytes Slight; Platelet Estimate Adequate
[2017-10-07] MEDS: INSULIN LISPRO 100 UNIT/ML SUBCUT SCH ×4 (09:40→21:36)
[2017-10-07] MEDS: ASPIRIN EC 81 MG TABLET PO SCH ×2 (10:18→22:31)
[2017-10-07] MEDS: CARVEDILOL 6.25 MG TABLET PO SCH ×2 (10:18→22:31)
[2017-10-07] MEDS: PANTOPRAZOLE 40 MG TABLET PO SCH (10:18)
[2017-10-07] MEDS: OMEGA 3 ACID ETHYL ESTERS 1 GM CAPSULE PO SCH ×2 (10:18→22:31)
[2017-10-07] MEDS: SODIUM CHLORIDE 1 GM TABLET PO SCH ×3 (10:18→22:31)
[2017-10-07] MEDS: INSULIN NPH/REGULAR 70/30 100 UNIT/ML SUBCUT SCH ×2 (10:19→21:34)
[2017-10-07] MEDS: traZODone 50 MG TABLET PO SCH (18:40)
[2017-10-07] MEDS: SIMVASTATIN 40 MG TABLET PO SCH (18:40)
[2017-10-08 06:22] LABS: Basophils # 0.1 10*3/uL (0.0-0.2); Basophils % 1.4 % (0.0-0.8); Eosinophils # 0.2 10*3/uL (0.0-0.87); Eosinophils % 4.3 % (0.00-10.9); Hematocrit 28.1 VOL% (42.0-52.0); Hemoglobin 9.9 GM/DL (14.0-18.0); Lymphocytes % 55.9 % (21.2-54.2); Mean Corpuscular HGB Conc 35.2 GM/DL (32-36); Mean Corpuscular Hemoglobin 30 PG (27-34); Mean Corpuscular Volume 85.7 FL (87-102); Mean Platelet Volume 10.9 FL (9.6-12.0); Monocytes # 0.5 10*3/uL (0.11-0.8); Monocytes % 14.6 % (1.7-12.7); Neutrophils # 0.8 10*3/uL (1.4-7.4); Neutrophils % 23.8 % (38.7-73.9); Platelet Count 172 T/CUMM (130-400); Red Blood Count 3.28 MC/CUMM (3.8-5.5); Red Cell Distribution Width 13.6 % (9.3-17.3); White Blood Count 3.5 T/CUMM (4-12)
[2017-10-08 06:51] LABS: Calcium 7.8 MG/DL (8.5-10.1); Magnesium 1.8 MG/DL (1.8-2.4); Osmolality,Calculated 257.8 MOS/KG (273-304); Potassium 4.1 MMOL/L (3.5-5.1)
[2017-10-08 06:54] LABS: Band Neutrophils 1 % (0-10); Elliptocytes Few; Eosinophils 6 % (0-10); Giant Platelets Few; Hypochromasia 1+; Lymphocytes 55 % (20-55); Microcytosis Slight; Platelet Estimate Normal; Segmented Neutrophils 21 % (50-85); Total Cells Counted 100
[2017-10-08] MEDS: PANTOPRAZOLE 40 MG TABLET PO SCH (11:03)
[2017-10-08] MEDS: INSULIN LISPRO 100 UNIT/ML SUBCUT SCH (11:03)
[2017-10-08] MEDS: OMEGA 3 ACID ETHYL ESTERS 1 GM CAPSULE PO SCH (11:03)
[2017-10-08] MEDS: ASPIRIN EC 81 MG TABLET PO SCH (11:04)
[2017-10-08] MEDS: INSULIN NPH/REGULAR 70/30 100 UNIT/ML SUBCUT SCH (11:04)
[2017-10-08] MEDS: CARVEDILOL 6.25 MG TABLET PO SCH (11:04)
[2017-10-08] MEDS: SODIUM CHLORIDE 1 GM TABLET PO SCH (11:04)
[2017-10-08 14:00] VITALS: BP 128/74
[2017-10-10] MEDS ORDERED: NON-FORMULARY MEDICATION (Exenatide Microspheres [Bydureon Pen] 2 MG) SUBCUT SCH (20:22)
== END 2017-10-08 13:46 | disposition home or self-care (01) | DRG 641 ==
LOC: EDUNIT# → EDBD → N.ED 15:21 → N.EDINP 20:16 → SUATTDRO 20:16 → N.TELES 21:00
PROVIDERS: ADMIT Internal Medicine; ATTEND Hospitalist

== ENCOUNTER 2017-11-09 18:28 | Observation (INO) ==
[2017-11-09] MEDS ORDERED: NITROGLYCERIN 2% OINT 1 INCH/GM PACK TOP STA (18:49)
[2017-11-09] MEDS ORDERED: ASPIRIN 325 MG TABLET PO STA (18:49)
[2017-11-09] MEDS ORDERED: NITROGLYCERIN 2% OINT 1 INCH/GM PACK TOP ONE (18:55)
[2017-11-09] MEDS ORDERED: ASPIRIN 325 MG TABLET ONE (18:55)
[2017-11-09 19:26] LABS: Basophils # 0.1 10*3/uL (0.0-0.2); Basophils % 1.3 % (0.0-0.8); Eosinophils # 0.2 10*3/uL (0.0-0.87); Eosinophils % 3.8 % (0.00-10.9); Hematocrit 34.5 VOL% (42.0-52.0); Hemoglobin 11.7 GM/DL (14.0-18.0); Immature Granulocytes % 0.2 %; Immature Granulocytes Absolute 0.01 #; Lymphocytes # 2.6 10*3/uL (1.4-4.0); Lymphocytes % 55.6 % (21.2-54.2); Mean Corpuscular HGB Conc 33.9 GM/DL (32-36); Mean Corpuscular Hemoglobin 30 PG (27-34); Mean Corpuscular Volume 88.7 FL (87-102); Mean Platelet Volume 11.3 FL (9.6-12.0); Monocytes # 0.6 10*3/uL (0.11-0.8); Neutrophils # 1.2 10*3/uL (1.4-7.4); Neutrophils % 26.1 % (38.7-73.9); Platelet Count 218 T/CUMM (130-400); Red Blood Count 3.89 MC/CUMM (3.8-5.5); Red Cell Distribution Width 13.5 % (9.3-17.3); White Blood Count 4.7 T/CUMM (4-12)
[2017-11-09 19:28] LABS: Albumin 3.6 G/DL (3.4-5.0); Bilirubin,Total 0.5 MG/DL (0.2-1.0); Calcium 8.3 MG/DL (8.5-10.1); Osmolality,Calculated 255.2 MOS/KG (273-304); Potassium 3.7 MMOL/L (3.5-5.1); Total Protein 6.2 G/DL (6.4-8.3)
[2017-11-09] MEDS ORDERED: DEXTROSE 50% 25 GM/50 ML VIAL IV PRN (21:07)
[2017-11-09] MEDS ORDERED: ONDANSETRON 4 MG/2 ML VIAL IV PRN (21:07)
[2017-11-09] MEDS ORDERED: GLUCAGON 1 MG VIAL IM PRN (21:07)
[2017-11-09 21:10] LABS: Band Neutrophils 3 % (0-10); Eosinophils 2 % (0-10); Lymphocytes 58 % (20-55); Platelet Estimate Normal; Segmented Neutrophils 25 % (50-85); Total Cells Counted 100
[2017-11-09] MEDS ORDERED: INSULIN NPH/REGULAR 70/30 100 UNIT/ML SUBCUT SCH (21:30)
[2017-11-09] MEDS: SODIUM CHLORIDE 0.9% 1,000 ML IV SCH (23:38)
[2017-11-09] MEDS: ENOXAPARIN 40 MG/0.4 ML SYRINGE SUBCUT SCH (23:40)
[2017-11-09] MEDS: CARVEDILOL 6.25 MG TABLET PO SCH (23:40)
[2017-11-10 01:24] LABS: Apearance,Urine Slightly Hazy (Clear); Bilirubin,Urine Negative (Negative); Blood, Urine Negative (Negative); Glucose,Urine (UA) Negative (Negative); Ketones,Urine Negative (Negative); Mucus,Urine Occasional /LPF (Occasional); Nitrite,Urine Negative (Negative); Protein,Urine Negative; RBC,Urine <1 /HPF (0-4); Urine Color Yellow (Yellow); Urine Specific Gravity 1.014 (1.001-1.035); Urine Urobilinogen < 2.0 EU/DL (0.2-1.0); WBC,Urine 1 /HPF (0-6)
[2017-11-10] MEDS: clonazePAM 0.5 MG TABLET PO PRN ×2 (01:44→22:48)
[2017-11-10 03:03] LABS: Basophils % 0.9 % (0.0-0.8); Eosinophils # 0.2 10*3/uL (0.0-0.87); Eosinophils % 3.5 % (0.00-10.9); Hematocrit 29.7 VOL% (42.0-52.0); Hemoglobin 10.4 GM/DL (14.0-18.0); Lymphocytes # 2.6 10*3/uL (1.4-4.0); Lymphocytes % 57.8 % (21.2-54.2); Mean Corpuscular Hemoglobin 30 PG (27-34); Mean Corpuscular Volume 86.3 FL (87-102); Mean Platelet Volume 11.1 FL (9.6-12.0); Monocytes # 0.6 10*3/uL (0.11-0.8); Monocytes % 12.7 % (1.7-12.7); Neutrophils # 1.2 10*3/uL (1.4-7.4); Neutrophils % 25.1 % (38.7-73.9); Platelet Count 218 T/CUMM (130-400); Red Blood Count 3.44 MC/CUMM (3.8-5.5); Red Cell Distribution Width 13.6 % (9.3-17.3); White Blood Count 4.6 T/CUMM (4-12)
[2017-11-10 03:32] LABS: Osmolality,Calculated 258.9 MOS/KG (273-304); Potassium 3.4 MMOL/L (3.5-5.1); Risk Ratio 3.18; VLDL CHOLESTEROL 42.8 MG/DL
[2017-11-10 03:37] LABS: Eosinophils 4 % (0-10); Lymphocytes 55 % (20-55); Segmented Neutrophils 33 % (50-85)
[2017-11-10 03:39] LABS: Platelet Estimate Normal; Total Cells Counted 100
[2017-11-10] MEDS: INSULIN LISPRO 100 UNIT/ML SUBCUT SCH ×4 (07:59→20:30)
[2017-11-10] MEDS: PANTOPRAZOLE 40 MG TABLET PO SCH (08:31)
[2017-11-10] MEDS: MULTIVITAMIN (BEROCCA) TABLET PO SCH (08:31)
[2017-11-10] MEDS: CARVEDILOL 6.25 MG TABLET PO SCH ×2 (08:32→21:08)
[2017-11-10] MEDS: ASPIRIN EC 81 MG TABLET PO SCH (08:32)
[2017-11-10] MEDS ORDERED: INSULIN NPH/REGULAR 70/30 100 UNIT/ML SUBCUT SCH (09:00)
[2017-11-10] MEDS: POTASSIUM CHLORIDE 20 MEQ TABLET PO PRN ×3 (10:42→14:53)
[2017-11-10] MEDS: HALOPERIDOL 5 MG/ML AMP IV PRN ×2 (17:00→21:01)
[2017-11-10] MEDS ORDERED: SIMVASTATIN 40 MG TABLET PO SCH (17:00)
[2017-11-10] MEDS: SODIUM CHLORIDE 0.9% 1,000 ML IV SCH ×2 (18:13→21:08)
[2017-11-10] MEDS: ENOXAPARIN 40 MG/0.4 ML SYRINGE SUBCUT SCH (21:08)
[2017-11-11] MEDS: HALOPERIDOL 5 MG/ML AMP IV PRN ×2 (03:31→09:11)
[2017-11-11] MEDS: PANTOPRAZOLE 40 MG TABLET PO SCH (09:10)
[2017-11-11] MEDS: ASPIRIN EC 81 MG TABLET PO SCH (09:10)
[2017-11-11] MEDS: CARVEDILOL 6.25 MG TABLET PO SCH (09:10)
[2017-11-11] MEDS: MULTIVITAMIN (BEROCCA) TABLET PO SCH (09:10)
[2017-11-11] MEDS: INSULIN LISPRO 100 UNIT/ML SUBCUT SCH ×2 (09:11→12:11)
[2017-11-11 11:46] VITALS: BP 149/91
== END 2017-11-11 12:20 | disposition home or self-care (01) ==
LOC: EDBD → EDUNIT# → N.EDINP 18:28 → N.ED 18:28 → N.5E 21:30
PROVIDERS: ADMIT Hospitalist; ATTEND Hospitalist

== ENCOUNTER 2018-04-03 11:50 | Inpatient (IN) ==
[2018-04-03 13:48] LABS: Basophils # 0.1 10*3/uL (0.0-0.2); Eosinophils # 0.3 10*3/uL (0.0-0.87); Eosinophils % 3.9 % (0.00-10.9); Hematocrit 35.1 VOL% (42.0-52.0); Hemoglobin 11.9 GM/DL (14.0-18.0); Immature Granulocytes % 0.1 %; Immature Granulocytes Absolute 0.01 #; Lymphocytes # 2.7 10*3/uL (1.4-4.0); Lymphocytes % 38.9 % (21.2-54.2); Mean Corpuscular HGB Conc 33.9 GM/DL (32-36); Mean Corpuscular Hemoglobin 31 PG (27-34); Mean Corpuscular Volume 91.6 FL (87-102); Mean Platelet Volume 11.5 FL (9.6-12.0); Monocytes # 0.8 10*3/uL (0.11-0.8); Monocytes % 12.1 % (1.7-12.7); Platelet Count 174 T/CUMM (130-400); Red Blood Count 3.83 MC/CUMM (3.8-5.5); Red Cell Distribution Width 13.3 % (9.3-17.3); White Blood Count 6.8 T/CUMM (4-12)
[2018-04-03 14:08] LABS: Apearance,Urine CLEAR (Clear); Bacteria,Urine Occasional /HPF (Few); Bilirubin,Urine Negative (Negative); Blood, Urine Negative (Negative); Glucose,Urine (UA) Negative (Negative); Hyaline Casts,Urine 9 /LPF (0-3); Ketones,Urine Negative (Negative); Mucus,Urine Occasional /LPF (Occasional); Nitrite,Urine Negative (Negative); Protein,Urine Negative; RBC,Urine <1 /HPF (0-4); Urine Color Yellow (Yellow); Urine Specific Gravity 1.011 (1.001-1.035); Urine Urobilinogen < 2.0 EU/DL (0.2-1.0)
[2018-04-03 14:17] LABS: Barbiturates Screen,Urine Negative (Negative); Benzodiazepines Screen,Urine Negative (Negative); Cannabinoid Screen,Urine Negative (Negative); Opiate Screen,Urine Negative (Negative); Phencyclidine Screen,Urine Negative (Negative)
[2018-04-03 14:35] LABS: INR 1.1; PT Patient Result 11.1 SECS
[2018-04-03] MEDS ORDERED: LORazepam 2 MG/1 ML VIAL ONE (14:35)
[2018-04-03] MEDS ORDERED: LORazepam 2 MG/1 ML VIAL IV STA (14:40)
[2018-04-03 14:43] LABS: Ammonia 26 UMOL/L (11-32)
[2018-04-03 14:49] LABS: Alanine Aminotransferase 28 U/L (16-61); Albumin 3.3 G/DL (3.4-5.0); Alkaline Phosphatase 52 U/L (45-117); Aspartate Amino Transferase 38 U/L (0-37); Blood Urea Nitrogen 5 MG/DL (7-18); Calcium 8.4 MG/DL (8.5-10.1); Glucose 132 MG/DL (74-106); Osmolality,Calculated 258.8 MOS/KG (273-304); Potassium 3.8 MMOL/L (3.5-5.1); Sodium 130 MMOL/L (136-145); Total Protein 6.7 G/DL (6.4-8.3); Troponin I Only < 0.015 NG/ML (0.00-0.045)
[2018-04-03] MEDS ORDERED: GLUCAGON 1 MG VIAL IM PRN (15:17)
[2018-04-03] MEDS ORDERED: DEXTROSE 50% 25 GM/50 ML VIAL IV PRN (15:17)
[2018-04-03] MEDS ORDERED: PANTOPRAZOLE 40 MG VIAL IV STA (15:17)
[2018-04-03] MEDS ORDERED: ONDANSETRON 4 MG/2 ML VIAL IV PRN (15:17)
[2018-04-03] MEDS: SODIUM CHLORIDE 0.9% 1,000 ML IV SCH (16:53)
[2018-04-03] MEDS ORDERED: NITROGLYCERIN SL 0.4 MG TABLET SL PRN (18:11)
[2018-04-03] MEDS ORDERED: clonazePAM 0.5 MG TABLET PO PRN (18:11)
[2018-04-03] MEDS: SIMVASTATIN 40 MG TABLET PO SCH (18:27)
[2018-04-03] MEDS: INSULIN REGULAR 100 UNIT/ML SUBCUT SCH ×2 (18:54→21:17)
[2018-04-03 19:26] LABS: Albumin 3.6 G/DL (3.4-5.0); Bilirubin,Direct 0.27 MG/DL (0.0-0.20); Bilirubin,Indirect 0.7 MG/DL (0.0-1.0); Total Protein 6.6 G/DL (6.4-8.3)
[2018-04-03] MEDS: CARVEDILOL 6.25 MG TABLET PO SCH (21:17)
[2018-04-04 07:00] LABS: Calcium 8.2 MG/DL (8.5-10.1); Osmolality,Calculated 252.4 MOS/KG (273-304); Potassium 4.3 MMOL/L (3.5-5.1); Thyroid Stimulating Hormone 1.78 uIU/ml (0.358-3.74)
[2018-04-04 07:07] LABS: Basophils # 0.1 10*3/uL (0.0-0.2); Basophils % 1.5 % (0.0-0.8); Eosinophils # 0.2 10*3/uL (0.0-0.87); Eosinophils % 3.5 % (0.00-10.9); Hemoglobin 11.1 GM/DL (14.0-18.0); Immature Granulocytes % 0.7 %; Immature Granulocytes Absolute 0.04 #; Lymphocytes # 2.5 10*3/uL (1.4-4.0); Lymphocytes % 41.6 % (21.2-54.2); Mean Corpuscular HGB Conc 34.7 GM/DL (32-36); Mean Corpuscular Hemoglobin 31 PG (27-34); Mean Corpuscular Volume 90.1 FL (87-102); Mean Platelet Volume 12.1 FL (9.6-12.0); Monocytes # 0.7 10*3/uL (0.11-0.8); Monocytes % 12.2 % (1.7-12.7); Neutrophils # 2.4 10*3/uL (1.4-7.4); Neutrophils % 40.5 % (38.7-73.9); Red Blood Count 3.55 MC/CUMM (3.8-5.5); Red Cell Distribution Width 13.1 % (9.3-17.3)
[2018-04-04 07:08] LABS: Platelet Count 117 T/CUMM (130-400)
[2018-04-04 07:23] LABS: Hypochromasia 1+; Ovalocytes Slight; Platelet Estimate Decreased
[2018-04-04 07:24] LABS: Microcytosis Slight
[2018-04-04] MEDS: INSULIN NPH/REGULAR 70/30 100 UNIT/ML SUBCUT SCH ×2 (08:46→16:18)
[2018-04-04] MEDS: INSULIN REGULAR 100 UNIT/ML SUBCUT SCH ×3 (08:46→16:18)
[2018-04-04] MEDS: PANTOPRAZOLE 40 MG TABLET PO SCH (08:47)
[2018-04-04] MEDS: CARVEDILOL 6.25 MG TABLET PO SCH (08:47)
[2018-04-04] MEDS: MULTIVITAMIN (BEROCCA) TABLET PO SCH (08:47)
[2018-04-04] MEDS ORDERED: NON-FORMULARY MEDICATION (Omeprazole [Omeprazole] 20 MG) PO SCH (09:00)
[2018-04-04] MEDS: SODIUM CHLORIDE 0.9% 1,000 ML IV SCH (13:03)
[2018-04-04 14:35] LABS: Calcium 8.3 MG/DL (8.5-10.1); Osmolality,Calculated 259.8 MOS/KG (273-304); Potassium 3.9 MMOL/L (3.5-5.1)
[2018-04-04] MEDS: LORazepam 2 MG/1 ML VIAL IV PRN (14:48)
[2018-04-04] MEDS: SIMVASTATIN 40 MG TABLET PO SCH (16:18)
[2018-04-04] MEDS ORDERED: BENZONATATE 100 MG CAPSULE PO PRN (21:44)
[2018-04-05] MEDS: INSULIN REGULAR 100 UNIT/ML SUBCUT SCH ×5 (00:29→21:00)
[2018-04-05] MEDS: CARVEDILOL 6.25 MG TABLET PO SCH ×3 (00:29→21:00)
[2018-04-05 05:51] LABS: Basophils # 0.1 10*3/uL (0.0-0.2); Basophils % 1.6 % (0.0-0.8); Eosinophils # 0.3 10*3/uL (0.0-0.87); Eosinophils % 5.5 % (0.00-10.9); Hematocrit 30.3 VOL% (42.0-52.0); Immature Granulocytes % 0.2 %; Immature Granulocytes Absolute 0.01 #; Lymphocytes % 39.3 % (21.2-54.2); Mean Corpuscular Hemoglobin 30 PG (27-34); Mean Corpuscular Volume 92.1 FL (87-102); Mean Platelet Volume 11.5 FL (9.6-12.0); Monocytes # 0.8 10*3/uL (0.11-0.8); Monocytes % 15.1 % (1.7-12.7); Neutrophils % 38.3 % (38.7-73.9); Platelet Count 174 T/CUMM (130-400); Red Blood Count 3.29 MC/CUMM (3.8-5.5); Red Cell Distribution Width 13.1 % (9.3-17.3); White Blood Count 5.1 T/CUMM (4-12)
[2018-04-05 06:05] LABS: Osmolality,Calculated 262.7 MOS/KG (273-304); Potassium 3.5 MMOL/L (3.5-5.1)
[2018-04-05 06:12] LABS: Eosinophils 9 % (0-10); Lymphocytes 36 % (20-55); Segmented Neutrophils 40 % (50-85); Total Cells Counted 100
[2018-04-05 06:13] LABS: Hypochromasia 1+; Microcytosis Slight; Platelet Estimate Normal
[2018-04-05] MEDS: SODIUM CHLORIDE 0.9% 1,000 ML IV SCH ×3 (11:18→19:07)
[2018-04-05] MEDS: MULTIVITAMIN (BEROCCA) TABLET PO SCH (11:19)
[2018-04-05] MEDS: INSULIN NPH/REGULAR 70/30 100 UNIT/ML SUBCUT SCH ×2 (11:19→17:24)
[2018-04-05] MEDS: PANTOPRAZOLE 40 MG TABLET PO SCH (11:20)
[2018-04-05] MEDS: SIMVASTATIN 40 MG TABLET PO SCH (17:25)
[2018-04-05] MEDS: MEMANTINE 5 MG TABLET PO SCH (21:00)
[2018-04-06] MEDS: LORazepam 2 MG/1 ML VIAL IV PRN (02:47)
[2018-04-06 04:51] LABS: Basophils # 0.1 10*3/uL (0.0-0.2); Eosinophils # 0.5 10*3/uL (0.0-0.87); Eosinophils % 10.2 % (0.00-10.9); Hematocrit 32.7 VOL% (42.0-52.0); Hemoglobin 11.1 GM/DL (14.0-18.0); Immature Granulocytes % 0.2 %; Immature Granulocytes Absolute 0.01 #; Lymphocytes % 40.2 % (21.2-54.2); Mean Corpuscular HGB Conc 33.9 GM/DL (32-36); Mean Corpuscular Hemoglobin 31 PG (27-34); Mean Corpuscular Volume 91.1 FL (87-102); Mean Platelet Volume 11.3 FL (9.6-12.0); Monocytes # 0.6 10*3/uL (0.11-0.8); Monocytes % 11.8 % (1.7-12.7); Neutrophils # 1.8 10*3/uL (1.4-7.4); Neutrophils % 36.6 % (38.7-73.9); Platelet Count 182 T/CUMM (130-400); Red Blood Count 3.59 MC/CUMM (3.8-5.5); Red Cell Distribution Width 12.8 % (9.3-17.3)
[2018-04-06 05:33] LABS: Osmolality,Calculated 261.7 MOS/KG (273-304); Potassium 3.7 MMOL/L (3.5-5.1)
[2018-04-06 05:36] LABS: Eosinophils 8 % (0-10); Lymphocytes 47 % (20-55); Platelet Estimate Normal; Segmented Neutrophils 36 % (50-85); Total Cells Counted 100
[2018-04-06 05:37] LABS: Atypical Lymphocytes Few; Hypochromasia 1+; Microcytosis Slight; Ovalocytes Slight
[2018-04-06] MEDS: INSULIN REGULAR 100 UNIT/ML SUBCUT SCH ×4 (10:53→21:00)
[2018-04-06] MEDS: SODIUM CHLORIDE 0.9% 1,000 ML IV SCH ×2 (10:54→16:47)
[2018-04-06] MEDS: INSULIN NPH/REGULAR 70/30 100 UNIT/ML SUBCUT SCH ×2 (10:55→18:17)
[2018-04-06] MEDS: MULTIVITAMIN (BEROCCA) TABLET PO SCH (18:16)
[2018-04-06] MEDS: CARVEDILOL 6.25 MG TABLET PO SCH ×2 (18:16→23:25)
[2018-04-06] MEDS: MEMANTINE 5 MG TABLET PO SCH ×2 (18:16→23:25)
[2018-04-06] MEDS: PANTOPRAZOLE 40 MG TABLET PO SCH (18:17)
[2018-04-06] MEDS: SIMVASTATIN 40 MG TABLET PO SCH (18:18)
[2018-04-06] MEDS ORDERED: QUEtiapine 25 MG TABLET PO SCH (21:00)
[2018-04-07] MEDS: SODIUM CHLORIDE 0.9% 1,000 ML IV SCH ×3 (02:00→22:22)
[2018-04-07] MEDS: LORazepam 2 MG/1 ML VIAL IV PRN (02:20)
[2018-04-07 07:21] LABS: Basophils # 0.1 10*3/uL (0.0-0.2); Basophils % 1.3 % (0.0-0.8); Eosinophils # 0.4 10*3/uL (0.0-0.87); Eosinophils % 8.3 % (0.00-10.9); Hematocrit 34.1 VOL% (42.0-52.0); Hemoglobin 11.3 GM/DL (14.0-18.0); Immature Granulocytes % 0.2 %; Immature Granulocytes Absolute 0.01 #; Lymphocytes # 2.5 10*3/uL (1.4-4.0); Lymphocytes % 46.2 % (21.2-54.2); Mean Corpuscular HGB Conc 33.1 GM/DL (32-36); Mean Corpuscular Hemoglobin 31 PG (27-34); Mean Corpuscular Volume 91.9 FL (87-102); Mean Platelet Volume 11.6 FL (9.6-12.0); Monocytes # 0.5 10*3/uL (0.11-0.8); Monocytes % 9.8 % (1.7-12.7); Neutrophils # 1.8 10*3/uL (1.4-7.4); Neutrophils % 34.2 % (38.7-73.9); Platelet Count 203 T/CUMM (130-400); Red Blood Count 3.71 MC/CUMM (3.8-5.5); White Blood Count 5.3 T/CUMM (4-12)
[2018-04-07 07:45] LABS: Osmolality,Calculated 266.4 MOS/KG (273-304); Potassium 3.5 MMOL/L (3.5-5.1)
[2018-04-07 07:47] LABS: Atypical Lymphocytes Few; Eosinophils 8 % (0-10); Hypochromasia 1+; Lymphocytes 48 % (20-55); Microcytosis Slight; Ovalocytes Slight; Platelet Estimate Adequate; Segmented Neutrophils 37 % (50-85); Total Cells Counted 100
[2018-04-07] MEDS: INSULIN REGULAR 100 UNIT/ML SUBCUT SCH ×4 (09:42→21:20)
[2018-04-07] MEDS ORDERED: FUROSEMIDE 20 MG/2 ML VIAL IV ONE (12:39)
[2018-04-07] MEDS ORDERED: clonazePAM 0.5 MG TABLET PO PRN (12:39)
[2018-04-07] MEDS ORDERED: POTASSIUM CHLORIDE 20 MEQ TABLET PO ONE (12:43)
[2018-04-07] MEDS: INSULIN NPH/REGULAR 70/30 100 UNIT/ML SUBCUT SCH ×2 (13:50→18:55)
[2018-04-07] MEDS: PANTOPRAZOLE 40 MG TABLET PO SCH (14:52)
[2018-04-07] MEDS: CARVEDILOL 6.25 MG TABLET PO SCH ×2 (14:52→21:13)
[2018-04-07] MEDS: MULTIVITAMIN (BEROCCA) TABLET PO SCH (14:53)
[2018-04-07] MEDS: MEMANTINE 5 MG TABLET PO SCH ×2 (14:53→21:13)
[2018-04-07] MEDS: MEGESTROL 400 MG/10 ML UDCUP PO SCH ×2 (14:55→21:56)
[2018-04-07] MEDS: QUEtiapine 25 MG TABLET PO SCH (21:14)
[2018-04-08] MEDS: SODIUM CHLORIDE 0.9% 1,000 ML IV SCH ×3 (04:43→18:17)
[2018-04-08 05:49] LABS: Basophils # 0.1 10*3/uL (0.0-0.2); Basophils % 1.2 % (0.0-0.8); Eosinophils # 0.3 10*3/uL (0.0-0.87); Eosinophils % 6.4 % (0.00-10.9); Hematocrit 33.1 VOL% (42.0-52.0); Hemoglobin 11.4 GM/DL (14.0-18.0); Immature Granulocytes % 0.2 %; Immature Granulocytes Absolute 0.01 #; Lymphocytes # 2.1 10*3/uL (1.4-4.0); Lymphocytes % 43.8 % (21.2-54.2); Mean Corpuscular HGB Conc 34.4 GM/DL (32-36); Mean Corpuscular Hemoglobin 31 PG (27-34); Mean Corpuscular Volume 89.2 FL (87-102); Mean Platelet Volume 11.6 FL (9.6-12.0); Monocytes # 0.5 10*3/uL (0.11-0.8); Monocytes % 9.3 % (1.7-12.7); Neutrophils # 1.9 10*3/uL (1.4-7.4); Neutrophils % 39.1 % (38.7-73.9); Platelet Count 214 T/CUMM (130-400); Red Blood Count 3.71 MC/CUMM (3.8-5.5); Red Cell Distribution Width 12.8 % (9.3-17.3); White Blood Count 4.9 T/CUMM (4-12)
[2018-04-08 06:08] LABS: Calcium 8.7 MG/DL (8.5-10.1)
[2018-04-08] MEDS: POTASSIUM CHLORIDE 10 MEQ TABLET PO SCH (09:15)
[2018-04-08] MEDS: CARVEDILOL 6.25 MG TABLET PO SCH ×2 (09:15→21:41)
[2018-04-08] MEDS: MULTIVITAMIN (BEROCCA) TABLET PO SCH (09:15)
[2018-04-08] MEDS: MEMANTINE 5 MG TABLET PO SCH (09:15)
[2018-04-08] MEDS: PANTOPRAZOLE 40 MG TABLET PO SCH (09:15)
[2018-04-08] MEDS: INSULIN REGULAR 100 UNIT/ML SUBCUT SCH ×4 (09:16→21:40)
[2018-04-08] MEDS: QUEtiapine 25 MG TABLET PO SCH ×2 (09:16→21:41)
[2018-04-08] MEDS: MEGESTROL 400 MG/10 ML UDCUP PO SCH ×2 (09:20→21:41)
[2018-04-08] MEDS: INSULIN NPH/REGULAR 70/30 100 UNIT/ML SUBCUT SCH ×2 (09:20→17:49)
[2018-04-08 13:41] LABS: Apearance,Urine CLEAR (Clear); Bilirubin,Urine Negative (Negative); Blood, Urine Small mg/dL (Negative); Glucose,Urine (UA) Negative (Negative); Ketones,Urine Negative (Negative); Nitrite,Urine Negative (Negative); Protein,Urine 30 MG/DL; RBC,Urine 11 /HPF (0-4); Urine Color Yellow (Yellow); Urine Specific Gravity 1.006 (1.001-1.035); WBC,Urine 17 /HPF (0-6)
[2018-04-09] MEDS: SODIUM CHLORIDE 0.9% 1,000 ML IV SCH ×2 (01:22→05:30)
[2018-04-09 06:20] LABS: Osmolality,Calculated 280.3 MOS/KG (273-304); Potassium 4.5 MMOL/L (3.5-5.1)
[2018-04-09] MEDS: PANTOPRAZOLE 40 MG TABLET PO SCH (08:40)
[2018-04-09] MEDS: POTASSIUM CHLORIDE 10 MEQ TABLET PO SCH (08:40)
[2018-04-09] MEDS: CARVEDILOL 6.25 MG TABLET PO SCH ×2 (08:40→20:39)
[2018-04-09] MEDS: QUEtiapine 25 MG TABLET PO SCH ×2 (08:40→20:39)
[2018-04-09] MEDS: MULTIVITAMIN (BEROCCA) TABLET PO SCH (08:40)
[2018-04-09] MEDS: MEGESTROL 400 MG/10 ML UDCUP PO SCH ×2 (08:40→20:39)
[2018-04-09] MEDS: INSULIN REGULAR 100 UNIT/ML SUBCUT SCH ×4 (08:41→20:39)
[2018-04-09] MEDS: INSULIN NPH/REGULAR 70/30 100 UNIT/ML SUBCUT SCH ×2 (09:24→20:14)
[2018-04-09] MEDS ORDERED: SODIUM CHLORIDE 0.9% 1,000 ML IV SCH (13:30)
[2018-04-09] MEDS: LEVOFLOXACIN INJ 500 MG in PREMIX 1 EACH IV SCH (13:45)
[2018-04-09] MEDS: ALBUTEROL/IPRATROPIUM 3 ML NEB RESP TX SCH ×2 (13:52→20:20)
[2018-04-10] MEDS: ALBUTEROL/IPRATROPIUM 3 ML NEB RESP TX SCH ×4 (01:23→19:16)
[2018-04-10 06:20] LABS: Basophils # 0.1 10*3/uL (0.0-0.2); Basophils % 1.3 % (0.0-0.8); Eosinophils # 0.3 10*3/uL (0.0-0.87); Eosinophils % 4.1 % (0.00-10.9); Hematocrit 36.3 VOL% (42.0-52.0); Immature Granulocytes % 0.3 %; Immature Granulocytes Absolute 0.02 #; Lymphocytes # 2.4 10*3/uL (1.4-4.0); Lymphocytes % 37.5 % (21.2-54.2); Mean Corpuscular HGB Conc 33.1 GM/DL (32-36); Mean Corpuscular Hemoglobin 31 PG (27-34); Mean Platelet Volume 11.2 FL (9.6-12.0); Monocytes # 0.6 10*3/uL (0.11-0.8); Neutrophils % 47.8 % (38.7-73.9); Platelet Count 271 T/CUMM (130-400); Red Blood Count 3.86 MC/CUMM (3.8-5.5); Red Cell Distribution Width 13.7 % (9.3-17.3); White Blood Count 6.3 T/CUMM (4-12)
[2018-04-10 06:43] LABS: Calcium 8.9 MG/DL (8.5-10.1); Osmolality,Calculated 278.4 MOS/KG (273-304); Potassium 3.8 MMOL/L (3.5-5.1)
[2018-04-10] MEDS: INSULIN REGULAR 100 UNIT/ML SUBCUT SCH ×4 (09:43→23:08)
[2018-04-10] MEDS: QUEtiapine 25 MG TABLET PO SCH ×2 (09:43→21:44)
[2018-04-10] MEDS: PANTOPRAZOLE 40 MG TABLET PO SCH (09:43)
[2018-04-10] MEDS: CARVEDILOL 6.25 MG TABLET PO SCH ×2 (09:43→21:44)
[2018-04-10] MEDS: MULTIVITAMIN (BEROCCA) TABLET PO SCH (09:43)
[2018-04-10] MEDS: POTASSIUM CHLORIDE 10 MEQ TABLET PO SCH (09:43)
[2018-04-10] MEDS: INSULIN NPH/REGULAR 70/30 100 UNIT/ML SUBCUT SCH ×2 (09:44→16:31)
[2018-04-10] MEDS: MEGESTROL 400 MG/10 ML UDCUP PO SCH ×2 (09:46→21:44)
[2018-04-10] MEDS ORDERED: TUBERCULIN SKIN TEST 0.1 ML SYRINGE INTRADERM ONE (12:00)
[2018-04-10] MEDS: LEVOFLOXACIN INJ 500 MG in PREMIX 1 EACH IV SCH (13:58)
[2018-04-10 14:33] LABS: Apearance,Urine CLEAR (Clear); Bilirubin,Urine Negative (Negative); Blood, Urine Negative (Negative); Glucose,Urine (UA) Negative (Negative); Ketones,Urine Negative (Negative); Mucus,Urine Occasional /LPF (Occasional); Nitrite,Urine Negative (Negative); Protein,Urine Negative; RBC,Urine 1 /HPF (0-4); Urine Color Yellow (Yellow); Urine Specific Gravity 1.009 (1.001-1.035); Urine Urobilinogen < 2.0 EU/DL (0.2-1.0)
[2018-04-11] MEDS: ALBUTEROL/IPRATROPIUM 3 ML NEB RESP TX SCH ×3 (00:05→12:30)
[2018-04-11 07:04] VITALS: BP 145/78
[2018-04-11] MEDS: INSULIN REGULAR 100 UNIT/ML SUBCUT SCH ×2 (09:16→12:47)
[2018-04-11] MEDS: MULTIVITAMIN (BEROCCA) TABLET PO SCH (09:17)
[2018-04-11] MEDS: QUEtiapine 25 MG TABLET PO SCH (09:17)
[2018-04-11] MEDS: MEGESTROL 400 MG/10 ML UDCUP PO SCH (09:17)
[2018-04-11] MEDS: CARVEDILOL 6.25 MG TABLET PO SCH (09:17)
[2018-04-11] MEDS: POTASSIUM CHLORIDE 10 MEQ TABLET PO SCH (09:17)
[2018-04-11] MEDS: INSULIN NPH/REGULAR 70/30 100 UNIT/ML SUBCUT SCH (09:17)
[2018-04-11] MEDS: PANTOPRAZOLE 40 MG TABLET PO SCH (09:17)
== END 2018-04-11 13:04 | DRG 57 ==
LOC: EDBD → EDUNIT# → N.ED 11:50 → N.EDINP 15:16 → N.TELEN 17:16 → N.2W 17:16 → N.TELEN 18:05
PROVIDERS: ADMIT Family Medicine; ATTEND Family Medicine

== ENCOUNTER 2018-06-01 20:43 | Inpatient (IN) ==
[2018-06-01] MEDS ORDERED: SODIUM CHLORIDE 0.9% 1,000 ML IV STA (21:09)
[2018-06-01 23:01] LABS: Alanine Aminotransferase 50 U/L (16-61); Alkaline Phosphatase 43 U/L (45-117); Aspartate Amino Transferase 130 U/L (0-37); Blood Urea Nitrogen 17 MG/DL (7-18); Calcium 8.5 MG/DL (8.5-10.1); Glucose 201 MG/DL (74-106); Osmolality,Calculated 282.7 MOS/KG (273-304); Sodium 138 MMOL/L (136-145)
[2018-06-01 23:03] LABS: Lactic Acid 3.1 MMOL/L (0.4-2.0)
[2018-06-01] MEDS ORDERED: fentaNYL 100 MCG/2 ML VIAL IV STA (23:35)
[2018-06-01] MEDS ORDERED: ONDANSETRON 4 MG/2 ML VIAL IV STA (23:35)
[2018-06-01] MEDS ORDERED: ONDANSETRON 4 MG/2 ML VIAL ONE (23:36)
[2018-06-01] MEDS ORDERED: fentaNYL 100 MCG/2 ML VIAL ONE (23:36)
[2018-06-01] MEDS ORDERED: LEVOFLOXACIN INJ 500 MG in PREMIX 1 EACH IV STA (23:54)
[2018-06-02] LABS: Apearance,Urine Slightly Hazy (Clear); Bacteria,Urine Occasional /HPF (Few); Bilirubin,Urine Negative (Negative); Blood, Urine Moderate mg/dL (Negative); Glucose,Urine (UA) Negative (Negative); Hyaline Casts,Urine 1 /LPF (0-3); Ketones,Urine Negative (Negative); Mucus,Urine Occasional /LPF (Occasional); Nitrite,Urine Negative (Negative); Protein,Urine Negative; RBC,Urine <1 /HPF (0-4); Urine Color Yellow (Yellow); Urine Specific Gravity 1.005 (1.001-1.035); Urine Urobilinogen < 2.0 EU/DL (0.2-1.0); WBC,Urine 1 /HPF (0-6)
[2018-06-02] MEDS ORDERED: GLUCAGON 1 MG VIAL IM PRN (00:10)
[2018-06-02] MEDS ORDERED: ONDANSETRON 4 MG/2 ML VIAL IV PRN (00:10)
[2018-06-02] MEDS ORDERED: DEXTROSE 50% 25 GM/50 ML VIAL IV PRN (00:10)
[2018-06-02] MEDS ORDERED: ACETAMINOPHEN 325 MG TABLET PO PRN (00:10)
[2018-06-02] MEDS ORDERED: fentaNYL 100 MCG/2 ML VIAL IM STA (01:22)
[2018-06-02] MEDS: SODIUM CHLORIDE 0.45% 1,000 ML IV SCH ×2 (01:49→11:59)
[2018-06-02 02:46] LABS: Basophils # 0.1 10*3/uL (0.0-0.2); Basophils % 0.5 % (0.0-0.8); Eosinophils % 0.2 % (0.00-10.9); Hematocrit 31.3 VOL% (42.0-52.0); Immature Granulocytes % 0.7 %; Immature Granulocytes Absolute 0.09 #; Lymphocytes % 22.9 % (21.2-54.2); Mean Corpuscular HGB Conc 35.1 GM/DL (32-36); Mean Corpuscular Hemoglobin 31 PG (27-34); Mean Corpuscular Volume 87.9 FL (87-102); Mean Platelet Volume 12.4 FL (9.6-12.0); Monocytes # 1.1 10*3/uL (0.11-0.8); Monocytes % 8.3 % (1.7-12.7); Neutrophils # 8.8 10*3/uL (1.4-7.4); Neutrophils % 67.4 % (38.7-73.9); Platelet Count 126 T/CUMM (130-400); Red Blood Count 3.56 MC/CUMM (3.8-5.5); Red Cell Distribution Width 13.9 % (9.3-17.3); White Blood Count 13.1 T/CUMM (4-12)
[2018-06-02] MEDS ORDERED: NITROGLYCERIN SL 0.4 MG TABLET SL PRN (09:59)
[2018-06-02] MEDS ORDERED: ACETAMINOPHEN PO PRN (09:59)
[2018-06-02] MEDS ORDERED: cefTRIAXone 1,000 MG VIAL IM SCH (11:00)
[2018-06-02] MEDS ORDERED: cefTRIAXone 1,000 MG VIAL IV SCH (11:57)
[2018-06-02] MEDS: PANTOPRAZOLE 40 MG TABLET PO SCH (11:58)
[2018-06-02] MEDS: DOCUSATE SODIUM 100 MG CAPSULE PO SCH ×2 (11:59→21:03)
[2018-06-02] MEDS: MAGNESIUM OXIDE 400 MG TABLET PO SCH ×2 (11:59→21:03)
[2018-06-02] MEDS: LEVOFLOXACIN INJ 250 MG in PREMIX 1 EACH IV SCH (12:02)
[2018-06-02] MEDS: cefTRIAXone 1,000 MG in SYRINGE 1 EACH IV SCH (12:03)
[2018-06-02] MEDS: methylPREDNISolone SOD SUC 40 MG/1 ML VIAL IV SCH (17:11)
[2018-06-02] MEDS: INSULIN LISPRO 100 UNIT/ML SUBCUT SCH ×2 (19:12→21:03)
[2018-06-02] MEDS: ALBUTEROL/IPRATROPIUM 3 ML NEB RESP TX SCH (20:00)
[2018-06-02] MEDS: INSULIN NPH/REGULAR 70/30 100 UNIT/ML SUBCUT SCH (21:02)
[2018-06-02] MEDS: QUEtiapine 25 MG TABLET PO SCH (21:03)
[2018-06-02] MEDS: ASPIRIN EC 81 MG TABLET PO SCH (21:03)
[2018-06-02] MEDS: MEMANTINE 5 MG TABLET PO SCH (21:03)
[2018-06-02] MEDS: CARVEDILOL 6.25 MG TABLET PO SCH (21:03)
[2018-06-03] MEDS: ALBUTEROL/IPRATROPIUM 3 ML NEB RESP TX SCH ×4 (00:50→19:12)
[2018-06-03] MEDS: SODIUM CHLORIDE 0.45% 1,000 ML IV SCH (04:49)
[2018-06-03] MEDS: methylPREDNISolone SOD SUC 40 MG/1 ML VIAL IV SCH ×2 (04:50→17:32)
[2018-06-03 05:32] LABS: Basophils # 0.1 10*3/uL (0.0-0.2); Basophils % 0.8 % (0.0-0.8); Eosinophils # 0.1 10*3/uL (0.0-0.87); Eosinophils % 0.7 % (0.00-10.9); Hematocrit 32.2 VOL% (42.0-52.0); Hemoglobin 10.8 GM/DL (14.0-18.0); Immature Granulocytes % 0.8 %; Immature Granulocytes Absolute 0.07 #; Lymphocytes # 2.5 10*3/uL (1.4-4.0); Lymphocytes % 28.1 % (21.2-54.2); Mean Corpuscular HGB Conc 33.5 GM/DL (32-36); Mean Corpuscular Hemoglobin 30 PG (27-34); Mean Corpuscular Volume 90.7 FL (87-102); Mean Platelet Volume 13.2 FL (9.6-12.0); Monocytes # 0.7 10*3/uL (0.11-0.8); Monocytes % 8.3 % (1.7-12.7); Neutrophils # 5.4 10*3/uL (1.4-7.4); Neutrophils % 61.3 % (38.7-73.9); Platelet Count 126 T/CUMM (130-400); Red Blood Count 3.55 MC/CUMM (3.8-5.5); Red Cell Distribution Width 14.2 % (9.3-17.3); White Blood Count 8.8 T/CUMM (4-12)
[2018-06-03 06:07] LABS: Hypochromasia 1+; Platelet Estimate Normal
[2018-06-03 06:22] LABS: Albumin 2.9 G/DL (3.4-5.0)
[2018-06-03 06:26] LABS: Bilirubin,Direct 0.21 MG/DL (0.0-0.20)
[2018-06-03 06:28] LABS: Bilirubin,Total 1.2 MG/DL (0.2-1.0); Total Protein 6.6 G/DL (6.4-8.3)
[2018-06-03 06:28] LABS: Potassium 3.6 MMOL/L (3.5-5.1)
[2018-06-03 06:30] LABS: Calcium 8.3 MG/DL (8.5-10.1)
[2018-06-03 06:35] LABS: Osmolality,Calculated 281.7 MOS/KG (273-304)
[2018-06-03] MEDS: PANTOPRAZOLE 40 MG TABLET PO SCH (11:23)
[2018-06-03] MEDS: MEMANTINE 5 MG TABLET PO SCH ×2 (11:28→21:41)
[2018-06-03] MEDS: MAGNESIUM OXIDE 400 MG TABLET PO SCH ×2 (11:28→21:41)
[2018-06-03] MEDS: DOCUSATE SODIUM 100 MG CAPSULE PO SCH ×2 (11:32→21:41)
[2018-06-03] MEDS: MULTIVITAMIN (BEROCCA) TABLET PO SCH (11:32)
[2018-06-03] MEDS: POTASSIUM CHLORIDE 10 MEQ TABLET PO SCH (11:32)
[2018-06-03] MEDS: INSULIN LISPRO 100 UNIT/ML SUBCUT SCH ×4 (11:33→21:42)
[2018-06-03] MEDS: INSULIN NPH/REGULAR 70/30 100 UNIT/ML SUBCUT SCH ×2 (11:33→21:42)
[2018-06-03] MEDS: CARVEDILOL 6.25 MG TABLET PO SCH ×2 (11:33→21:41)
[2018-06-03] MEDS: QUEtiapine 25 MG TABLET PO SCH ×2 (11:38→21:41)
[2018-06-03] MEDS: LEVOFLOXACIN INJ 250 MG in PREMIX 1 EACH IV SCH (11:42)
[2018-06-03] MEDS: cefTRIAXone 1,000 MG in SYRINGE 1 EACH IV SCH (17:00)
[2018-06-03] MEDS: ASPIRIN EC 81 MG TABLET PO SCH (21:41)
[2018-06-04] MEDS: ALBUTEROL/IPRATROPIUM 3 ML NEB RESP TX SCH ×4 (00:21→19:12)
[2018-06-04] MEDS: methylPREDNISolone SOD SUC 40 MG/1 ML VIAL IV SCH ×2 (05:00→17:40)
[2018-06-04 05:03] LABS: Basophils % 0.1 % (0.0-0.8); Hematocrit 29.6 VOL% (42.0-52.0); Hemoglobin 10.4 GM/DL (14.0-18.0); Immature Granulocytes % 0.9 %; Immature Granulocytes Absolute 0.08 #; Lymphocytes # 1.7 10*3/uL (1.4-4.0); Lymphocytes % 19.3 % (21.2-54.2); Mean Corpuscular HGB Conc 35.1 GM/DL (32-36); Mean Corpuscular Hemoglobin 31 PG (27-34); Mean Corpuscular Volume 88.1 FL (87-102); Mean Platelet Volume 13.2 FL (9.6-12.0); Monocytes # 0.7 10*3/uL (0.11-0.8); Monocytes % 7.9 % (1.7-12.7); Neutrophils # 6.2 10*3/uL (1.4-7.4); Neutrophils % 71.8 % (38.7-73.9); Platelet Count 109 T/CUMM (130-400); Red Blood Count 3.36 MC/CUMM (3.8-5.5); Red Cell Distribution Width 14.5 % (9.3-17.3); White Blood Count 8.7 T/CUMM (4-12)
[2018-06-04 05:22] LABS: Calcium 8.7 MG/DL (8.5-10.1); Osmolality,Calculated 286.7 MOS/KG (273-304); Potassium 4.2 MMOL/L (3.5-5.1)
[2018-06-04] MEDS: DOCUSATE SODIUM 100 MG CAPSULE PO SCH ×2 (09:52→22:30)
[2018-06-04] MEDS: CARVEDILOL 6.25 MG TABLET PO SCH ×2 (10:13→21:35)
[2018-06-04] MEDS: MULTIVITAMIN (BEROCCA) TABLET PO SCH (10:13)
[2018-06-04] MEDS: MAGNESIUM OXIDE 400 MG TABLET PO SCH ×2 (10:13→21:35)
[2018-06-04] MEDS: INSULIN LISPRO 100 UNIT/ML SUBCUT SCH ×4 (10:14→21:35)
[2018-06-04] MEDS: POTASSIUM CHLORIDE 10 MEQ TABLET PO SCH (10:14)
[2018-06-04] MEDS: PANTOPRAZOLE 40 MG TABLET PO SCH (10:14)
[2018-06-04] MEDS: INSULIN NPH/REGULAR 70/30 100 UNIT/ML SUBCUT SCH ×2 (10:14→17:41)
[2018-06-04] MEDS: MEMANTINE 5 MG TABLET PO SCH ×2 (10:14→21:35)
[2018-06-04] MEDS: LEVOFLOXACIN INJ 250 MG in PREMIX 1 EACH IV SCH (10:26)
[2018-06-04] MEDS ORDERED: hydrALAZINE 20 MG/1 ML VIAL IV PRN (12:48)
[2018-06-04] MEDS: cefTRIAXone 1,000 MG in SYRINGE 1 EACH IV SCH (17:41)
[2018-06-04] MEDS: QUEtiapine 25 MG TABLET PO SCH ×2 (17:41→22:31)
[2018-06-05] MEDS: ALBUTEROL/IPRATROPIUM 3 ML NEB RESP TX SCH ×3 (00:39→13:25)
[2018-06-05] MEDS: ASPIRIN EC 81 MG TABLET PO SCH (05:02)
[2018-06-05] MEDS: methylPREDNISolone SOD SUC 40 MG/1 ML VIAL IV SCH (05:02)
[2018-06-05 07:14] LABS: Basophils % 0.2 % (0.0-0.8); Eosinophils % 0.1 % (0.00-10.9); Hematocrit 33.8 VOL% (42.0-52.0); Hemoglobin 11.5 GM/DL (14.0-18.0); Immature Granulocytes % 0.8 %; Immature Granulocytes Absolute 0.07 #; Lymphocytes % 22.8 % (21.2-54.2); Mean Corpuscular Hemoglobin 31 PG (27-34); Mean Corpuscular Volume 90.4 FL (87-102); Mean Platelet Volume 13.2 FL (9.6-12.0); Monocytes # 0.5 10*3/uL (0.11-0.8); Monocytes % 5.6 % (1.7-12.7); Neutrophils # 6.3 10*3/uL (1.4-7.4); Neutrophils % 70.5 % (38.7-73.9); Platelet Count 138 T/CUMM (130-400); Red Blood Count 3.74 MC/CUMM (3.8-5.5); Red Cell Distribution Width 14.2 % (9.3-17.3); White Blood Count 8.9 T/CUMM (4-12)
[2018-06-05 07:24] LABS: Calcium 9.2 MG/DL (8.5-10.1); Osmolality,Calculated 284.5 MOS/KG (273-304); Potassium 4.4 MMOL/L (3.5-5.1)
[2018-06-05 07:50] LABS: Hypochromasia Slight; Microcytosis Slight; Platelet Estimate Adequate
[2018-06-05] MEDS: PANTOPRAZOLE 40 MG TABLET PO SCH (09:29)
[2018-06-05] MEDS: MEMANTINE 5 MG TABLET PO SCH (09:29)
[2018-06-05] MEDS: MULTIVITAMIN (BEROCCA) TABLET PO SCH (09:29)
[2018-06-05] MEDS: DOCUSATE SODIUM 100 MG CAPSULE PO SCH (09:30)
[2018-06-05] MEDS: POTASSIUM CHLORIDE 10 MEQ TABLET PO SCH (09:30)
[2018-06-05] MEDS: INSULIN NPH/REGULAR 70/30 100 UNIT/ML SUBCUT SCH (09:30)
[2018-06-05] MEDS ORDERED: QUEtiapine 25 MG TABLET PO SCH (09:30)
[2018-06-05] MEDS: CARVEDILOL 6.25 MG TABLET PO SCH (09:30)
[2018-06-05] MEDS: MAGNESIUM OXIDE 400 MG TABLET PO SCH (09:30)
[2018-06-05] MEDS: INSULIN LISPRO 100 UNIT/ML SUBCUT SCH ×2 (09:31→12:34)
[2018-06-05] MEDS: LEVOFLOXACIN INJ 250 MG in PREMIX 1 EACH IV SCH (12:33)
[2018-06-05 16:21] VITALS: BP 130/82
== END 2018-06-05 18:00 | disposition home health service (06) | DRG 871 ==
LOC: EDBD → EDUNIT# → N.ED 20:43 → N.EDINP 06-02 00:10 → N.ICU 06-02 01:30 → N.TELEN 06-02 01:31
PROVIDERS: ADMIT Family Medicine; ATTEND Family Medicine